=== PATIENT | male | born 1965 | race Caucasian/White ===

== ENCOUNTER 2019-03-10 20:21 | Inpatient (IN) | payer MEDICARE ==
[2019-03-10] MEDS ORDERED: Bisacodyl 5 MG TAB PO PRN (23:58)
[2019-03-10] MEDS ORDERED: Acetaminophen 325 MG TAB PO PRN (23:58)
[2019-03-11] MEDS ORDERED: hydrALAZINE 20 MG/ML VIAL SLOW IVP PRN (00:17)
--- NOTE | 2019-03-11 00:35 | HP ---
TIME OF SERVICE: 2330 hours. PRIMARY CARE PROVIDER: Unknown. CHIEF COMPLAINT: Pacemaker beeping. HISTORY OF PRESENT ILLNESS: Mr. Villanueva is a pleasant 53-year-old gentleman, who was seen at [facility] on March 10, 2019. He was initially seen at [facility] and was transferred to this facility. The patient is a very poor historian. He reports that he sees a collections clerk in [place], but is unable to recall the name. He reports that he does not have a primary care provider at this time. He also reports that he does not take any medications. He reports that he had a myocardial infarction in 1994. He reports that he had a pacemaker placed after that. He denies any irregular heart rhythms. He also reports being on some blood thinners until 2016, but is unable to recall the name. He presented to the [place] [facility] because his pacemaker started beeping. He denies any pacemaker shocks. The pacemaker was interrogated and that showed multiple rounds of sustained ventricular tachycardia and rounds of nonsustained ventricular tachycardia. The patient denies receiving any electric shock, as mentioned earlier. The patient also reports two falls, one 2 weeks ago and one 2 months ago. He reports head trauma during those falls, but did not seek medical attention. REVIEW OF SYSTEMS: All systems were reviewed and found to be negative except for the pertinent positives mentioned above. PAST MEDICAL HISTORY: Hypertension, dyslipidemia, diabetes mellitus, CVA x3, and myocardial infarction. PAST SURGICAL HISTORY: Pacemaker placement. SOCIAL HISTORY: The patient reports occasional marijuana use. He denies any alcohol use. He is an ex-smoker, with 114 pack-year history. FAMILY HISTORY: The patient denies any family history of premature coronary artery disease. ALLERGIES: NO KNOWN DRUG ALLERGIES. CURRENT MEDICATIONS: None. PHYSICAL EXAMINATION: GENERAL: On examination, Mr. Villanueva is awake and alert, not in acute distress. VITAL SIGNS: Blood pressure is 165/103, pulse 78, respiratory rate 18, and oxygen saturation 99% on room air. Earlier, his blood pressure was 191/147. EYES: No scleral icterus, no conjunctival pallor. ENT: Moist mucosal membranes. No oropharyngeal erythema or exudates. NECK: Supple, nontender, trachea is midline. RESPIRATORY: Accessory muscles of breathing are not active. Chest wall movements are symmetric bilaterally. Lungs are clear to auscultation without wheeze, rhonchi, or crepitations. CARDIOVASCULAR: S1 and S2 are heard, regular. Peripheral pulses palpable. ABDOMEN: Soft, nontender, bowel sounds heard. NEUROLOGIC: Cranial nerves 2 through 12 are intact. MUSCULOSKELETAL: Power is 5/5 in all 4 extremities. SKIN: He has bilateral lower extremity edema. LYMPHATIC: No cervical lymphadenopathy. PSYCHIATRIC: Normal mood, normal affect, the patient is oriented to person and place, not to time. LABORATORY AND DIAGNOSTIC FINDINGS: Mr. Villanueva's labs and investigations were reviewed. I reviewed his electrocardiogram, which shows atrial sensed, ventricular paced rhythm. I also reviewed his chest x-ray, which does not show any pulmonary infiltrates. He has an unremarkable CBC, INR 1.1, and unremarkable comprehensive metabolic profile. ASSESSMENT AND PLAN: Mr. Villanueva is a pleasant 53-year-old gentleman, who was seen at [facility] on March 10, 2019. His problem list includes: 1. AICD malfunction: It appears that the patient may have AICD and not pacemaker. It has been beeping. He did have runs of ventricular tachycardia. He will be admitted to the hospital for further management. He will be monitored on telemetry. Cardiology Service will be consulted for opinion and help with management. 2. Hypertensive urgency: Mr. Villanueva is also presenting with hypertensive urgency. We will start p.r.n. antihypertensives. We will monitor vital signs and titrate antihypertensives as needed. 3. Dyslipidemia: The patient is currently not on any medications for this. We will check fasting lipid profile and proceed based on the results. 4. Diabetes mellitus: We will check A1c level, we will initiate medications as needed. Many thanks for allowing me to participate in your patient's care. Please feel free to contact me with any questions or concerns. LEVEL OF RISK: High. LEVEL OF COMPLEXITY: High. Job ID: [id number]
[2019-03-11 03:01] VITALS: BMI 31.9
[2019-03-11 04:57] LABS: Hemoglobin A1c 6.2 % (4.0-6.0)
[2019-03-11 05:12] LABS: Anion Gap 13 mmol/L (10-20); BUN (Urea Nitrogen) 12 mg/dL (8.4-25.7); Calc. Creatinine Clearance 148 mL/min (70-130); Calcium 8.9 mg/dL (7.8-10.44); Carbon Dioxide 21 mmol/L (22-29); Cardiac Risk 6.3 (Less than 4.5); Chloride 106 mmol/L (98-107); Cholesterol 189 mg/dl (< 200 Desired); Estimated GFR-MDRD Greater than 90; Glucose 113 mg/dL (70-105); HDL Cholesterol 30 mg/dL (>60 Neg Risk); LDL Cholesterol, Calculated 123 mg/dL; Potassium 3.9 mmol/L (3.5-5.1); Sodium 136 mmol/L (136-145); Triglycerides 182 mg/dL (Less than 150)
[2019-03-11 05:34] LABS: #Basophils 0.1 thou/uL (0.0-0.2); #Eosinphils 0.3 thou/uL (0.0-0.7); #Lymphocytes 2.5 thou/uL (1.20-3.40); #Monocytes 0.5 thou/uL (0.11-0.59); #Neutrophils 4.8 thou/uL (1.40-6.50); %Basophils 0.8 % (0.0-1.0); %Eosinophils 3.3 % (0.0-10.0); %Lymphocytes 30.7 % (21.0-51.0); %Monocytes 5.9 % (0.0-10.0); %Neutrophils 59.4 % (42.0-75.0); Hemoglobin 15.4 g/dL (14.0-18.0); Mean Corpuscular Hemoglobin 33.4 pg (27.0-31.0); Mean Corpuscular Volume 95.3 fL (78.0-98.0); Mean Platelet Volume 8.6 fL (7.4-10.4); Platelet Count 137 thou/uL (130-400); RBC Distribution Width 11.6 % (11.5-14.5); Red Blood Cell (RBC) Count 4.62 mill/uL (4.70-6.10); White Blood Cell (WBC) Count 8.1 thou/uL (4.8-10.8)
--- NOTE | 2019-03-11 07:43 | CT ---
PRELIMINARY REPORT/[facility]/EMERGENCY AFTER HOURS PROCEDURE: PROCEDURE INFORMATION: Exam: CT Head without contrast Exam date and time: 03/11/2019 12:01 AM Clinical history: 53 years old, male; Injury or trauma; Initial encounter; Blunt trauma (contusions o r hematomas); Patient HX: Fall, head trauma, m53 w/ HX of mi presents to the ED from [facility]. PT reports he presented to [facility] initially because his pacemaker was beeping. PT states his pacemaker did not shock him. PT reports he has not been on blood thinners since 2017. PT states his p acemaker was placed after an mi in 1994. Per the pt's medical record, integration of his pacemaker sh owed multiple rounds of sustained vtach that he was paced out of and rounds of unsustained vtach that he was paced out of TECHNIQUE: Imaging protocol: Computed tomography of the head without contrast. COMPARISON: No relevant prior studies available. FINDINGS: Brain: Volume loss and chronic small vessel ischemic change. Left occipital encephalomalacia/gliosis. Old lacunar infarction(s). No brain edema. No intracranial hemorrhage. Ventricles: Normal. No ventriculomegaly. Bones/joints: Unremarkable. No acute fracture. Sinuses: Incidental sinus mucosal thickening present. Dependent mucus in the sphenoid sinuses. Mastoid air cells: Visualized mastoid air cells are well aerated. Soft tissues: Unremarkable. IMPRESSION: No acute brain findings. Thank you for allowing us to participate in the care of your patient. Dictated and Authenticated by: Jas Guerra MD 03/11/2019 12:20 AM Central Time ([place] & [place]) FINAL REPORT CT HEAD NONCONTRAST: DATE: 03/11/2019. TIME: Performed on an emergency basis at 0002 hours. HISTORY: Head injury. FINDINGS: No comparison. Agree with the preliminary report by Dr. Guerra from [facility]. Old left oc cipital lobe infarct and other chronic-type findings. No acute intracranial abnormalities are demons trated. POS: [facility]
[2019-03-11] MEDS: Carvedilol 3.125 MG TAB PO SCH ×2 (08:42→18:23)
[2019-03-11] MEDS ORDERED: PROPOFOL 200 MG/20 ML VIAL ONE (15:19)
[2019-03-11] MEDS ORDERED: Fentanyl 100 MCG/2 ML VIAL ONE (16:00)
[2019-03-11] MEDS ORDERED: Midazolam HCl 2 mg/2 ml Vial ONE (16:00)
[2019-03-11] MEDS ORDERED: Lidocaine 1% (PF) 30 ML VIAL ONE (16:03)
--- NOTE | 2019-03-11 16:11 | PDOC.HOSPP ---
- Subjective Encounter Date: 03/11/19 Encounter Time: 10:00 Subjective: no sob or chest pain or palp - Objective Vital Signs & Weight: Vital Signs (12 hours) Temp Pulse Resp BP Pulse Ox 03/11/19 11:26 98.1 F 83 18 152/107 H 93 L 03/11/19 07:45 97.8 F 64 20 140/76 92 L 03/11/19 04:18 97.5 F L 73 16 167/94 H 94 L Weight Weight 229 lb 1.6 oz Result Diagrams: 03/11/19 04:16 03/11/19 04:16 Hospitalist ROS - Medication Medications: Active Medications Generic Name Dose Route Start Last Admin Trade Name Freq PRN Reason Stop Dose Admin Carvedilol 3.125 mg 03/11/19 08:00 03/11/19 08:42 Coreg PO 3.125 mg BID-WM SRINIVAS Administration - Exam General Appearance: NAD, awake alert Eye: anicteric sclera ENT: no oropharyngeal lesions, dry oral mucosa Neck: supple, no JVD Heart: RRR, no murmur Respiratory: no wheezes, no rales Gastrointestinal: soft, non-tender, non-distended, normal bowel sounds Extremities: no clubbing, no edema Neurological: cranial nerve grossly intact, no focal deficits Psychiatric: normal affect, A&O x 3 Hosp A/P (1) Pacemaker malfunction Code(s): T82.111A - BREAKDOWN OF CARDIAC PULSE GENERATOR (BATTERY), INIT Status: Acute (2) Obesity (BMI 30.0-34.9) Code(s): E66.9 - OBESITY, UNSPECIFIED Status: Chronic (3) HTN (hypertension) Code(s): I10 - ESSENTIAL (PRIMARY) HYPERTENSION Status: Chronic Qualifiers: Hypertension type: essential hypertension Qualified Code(s): I10 - Essential (primary) hypertension (4) H/O: CVA (cerebrovascular accident) Code(s): Z86.73 - PRSNL HX OF TIA (TIA), AND CEREB INFRC W/O RESID DEFICITS Status: Chronic (5) DM type 2 (diabetes mellitus, type 2) Status: Chronic Qualifiers: 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
[2019-03-11] MEDS ORDERED: Propofol 1,000 MG/100 ML VIAL IV ONE (16:23)
--- NOTE | 2019-03-11 17:17 | CON ---
DATE OF CONSULTATION: HISTORY OF PRESENT ILLNESS: The patient is a 53-year-old gentleman with a history of myocardial infarction,who presented after his AICD started beeping. The patient has a history of ischemic cardiomyopathy. He states many years ago he suffered myocardial infarction. The patient unfortunately has not been compliant with any followup. He has not been taking any medications. The patient does not see any physician on a regular basis. He states that he was in his usual state of health when he noted that his defibrillator had been beeping. The patient denies having any palpitations.He denies having any chest pain. PAST MEDICAL HISTORY: 1. Myocardial infarction. 2. Hypertension. 3. Diabetes mellitus. 4. Dyslipidemia. 5. COPD. PAST SURGICAL HISTORY: Testicular surgery. MEDICATIONS: None. SOCIAL HISTORY: Former smoker. ALLERGIES: NO KNOWN DRUG ALLERGIES. REVIEW OF SYSTEMS: Ten-point system otherwise unremarkable. PHYSICAL EXAMINATION: GENERAL AND VITAL SIGNS: This is an obese gentleman who is anxious with a blood pressure of 140/76. NECK: No jugular venous distention. LUNGS: Clear to auscultation. HEART: Regular rate and rhythm. Normal S1, S2. ABDOMEN: Nondistended. EXTREMITIES: Show trace edema. VASCULAR: Radial pulses are 2+. LABORATORY DATA: Sodium 136, potassium 3.9, chloride 106, bicarbonate 21, BUN 12, creatinine 0.84, and glucose is 113. White blood cell count 8.1, hemoglobin 15.4, hematocrit 44.1, and platelets are 137. EKG revealed dual-chamber electronic pacemaker. IMPRESSION: 1. Implantable cardioverter-defibrillator at end of life. 2. History of ischemic cardiomyopathy. 3. History of myocardial infarction. 4. Diabetes mellitus. 5. Hypertension. 6. Dyslipidemia. 7. Chronic obstructive pulmonary disease. 8. Noncompliance. This gentleman has not had any recent medical care. From a Cardiac standpoint, his battery needs to be replaced. The patient will undergo an echocardiogram to re-evaluate his left ventricular function. The patient has been started on Coreg. We will add lisinopril. We will follow this patient with you throughout his hospitalization. Job ID: [id number] [facility]
[2019-03-11] MEDS ORDERED: Ondansetron HCl/PF 4 MG/2 ML Vial IVP PRN (17:31)
[2019-03-11] MEDS ORDERED: HYDROcodone/Acetaminophen 5/325 mg Tablet PO PRN ×2 (18:15)
[2019-03-11] MEDS ORDERED: Cephalexin 250 MG CAP PO SCH (18:15)
[2019-03-11] MEDS: Lisinopril 5 MG TAB PO SCH (20:10)
[2019-03-11] MEDS: Atorvastatin Calcium 40 MG TAB PO SCH (20:10)
[2019-03-11 21:49] LABS: Anion Gap 11 mmol/L (10-20); BUN (Urea Nitrogen) 12 mg/dL (8.4-25.7); Calc. Creatinine Clearance 136 mL/min (70-130); Calcium 8.6 mg/dL (7.8-10.44); Carbon Dioxide 21 mmol/L (22-29); Chloride 104 mmol/L (98-107); Estimated GFR-MDRD 87; Glucose 181 mg/dL (70-105); Potassium 3.7 mmol/L (3.5-5.1); Sodium 132 mmol/L (136-145)
[2019-03-12] MEDS: Cephalexin 250 MG CAP PO SCH ×4 (01:35→17:52)
[2019-03-12 06:04] LABS: #Eosinphils 0.2 thou/uL (0.0-0.7); #Lymphocytes 1.9 thou/uL (1.20-3.40); #Monocytes 0.5 thou/uL (0.11-0.59); #Neutrophils 7.4 thou/uL (1.40-6.50); %Basophils 0.3 % (0.0-1.0); %Eosinophils 2.4 % (0.0-10.0); %Lymphocytes 18.9 % (21.0-51.0); %Monocytes 4.9 % (0.0-10.0); %Neutrophils 73.5 % (42.0-75.0); Hemoglobin 15.2 g/dL (14.0-18.0); Mean Corpuscular HGB CONC 35.7 g/dL (32.0-36.0); Mean Corpuscular Hemoglobin 34.8 pg (27.0-31.0); Mean Corpuscular Volume 97.2 fL (78.0-98.0); Mean Platelet Volume 8.7 fL (7.4-10.4); Platelet Count 140 thou/uL (130-400); RBC Distribution Width 11.6 % (11.5-14.5); Red Blood Cell (RBC) Count 4.39 mill/uL (4.70-6.10); White Blood Cell (WBC) Count 10.1 thou/uL (4.8-10.8)
[2019-03-12 06:22] LABS: Anion Gap 12 mmol/L (10-20); BUN (Urea Nitrogen) 12 mg/dL (8.4-25.7); Calc. Creatinine Clearance 159 mL/min (70-130); Calcium 8.6 mg/dL (7.8-10.44); Carbon Dioxide 20 mmol/L (22-29); Chloride 106 mmol/L (98-107); Estimated GFR-MDRD Greater than 90; Glucose 105 mg/dL (70-105); Potassium 3.7 mmol/L (3.5-5.1); Sodium 134 mmol/L (136-145)
[2019-03-12] MEDS ORDERED: Carvedilol 3.125 MG TAB PO SCH (08:45)
[2019-03-12] MEDS: Lisinopril 5 MG TAB PO SCH ×2 (10:12→21:01)
[2019-03-12] MEDS: Aspirin Chewable 81 MG TAB PO SCH (10:12)
[2019-03-12] MEDS: Carvedilol 3.125 MG TAB PO SCH ×2 (10:14→17:51)
[2019-03-12] MEDS ORDERED: FLU VACC QS2019-20(6MOS UP)/PF 60 MCG/0.5 ML SYRINGE IM ONE (10:15)
--- NOTE | 2019-03-12 10:30 | PRG ---
DATE OF SERVICE: 03/12/2019 SUBJECTIVE: Mr. Villanueva seems to be doing well one day after his ICD generator change. LABORATORY DATA: Telemetry strips reveal sinus rhythm, occasional short nonsustained ventricular tachycardia episodes. White count is 10.1, hemoglobin 15.2. Electrolytes are in normal range. OBJECTIVE: VITAL SIGNS: Blood pressure is 150/107, heart rate 83, respirations 18, temperature 98.1 degrees Fahrenheit. GENERAL: Alert and oriented man, in no apparent distress. NECK: Supple. Jugular veins not distended. CHEST: Coarse without crackles. CARDIAC: Heart sounds are regular to rate and rhythm. No murmur or gallop. ABDOMEN: Benign. Bowel sounds positive. EXTREMITIES: Lower extremity without edema, clubbing, or cyanosis. Also the left precordial ICD generator change site seems to be with adequate approximated edges. No reaction. ASSESSMENT AND PLAN: Mr. Villanueva is a 53-year-old man with history of ischemic cardiomyopathy, ventricular tachycardia, Bi-V ICD placed back in April 2011 which reached generator end of life and required replacement yesterday. 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 Instead, we have opted for switching the LV and RV ports hence adequate sensing from the LV lead was noted. In the future, programing of this should be noted as he seems to be doing well with Bi-V pacing. Plan is to continue current regimen including antibiotics. He is to follow up in 2 weeks in our office. I will sign off. Please call us if I can be of any further help. Thank you again for allowing me to participate in the care of this patient. Job ID: [id number]
--- NOTE | 2019-03-12 12:53 | PDOC.HOSPP ---
- Subjective Encounter Date: 03/12/19 Encounter Time: 10:00 Subjective: no sob or palp is sitting on bed, feels good says he is amb to restroom and back - Objective Vital Signs & Weight: Vital Signs (12 hours) Temp Pulse Resp BP BP Pulse Ox 03/12/19 12:00 97.9 F 71 18 123/73 93 L 03/12/19 10:12 74 140/67 03/12/19 07:51 98 F 74 16 140/67 93 L 03/12/19 07:30 93 L 03/12/19 03:22 97.9 F 72 16 141/79 H 96 03/12/19 01:52 94 L Weight Weight 229 lb 1.6 oz I&O: 03/11/19 03/12/19 03/13/19 06:59 06:59 06:59 Intake Total 300 Output Total 0 Balance 300 Result Diagrams: 03/12/19 04:49 03/12/19 04:49 Additional Labs: Accuchecks 03/11/19 20:42 POC Glucose 209 H Hospitalist ROS - Medication Medications: Active Medications Generic Name Dose Route Start Last Admin Trade Name Freq PRN Reason Stop Dose Admin Aspirin 81 mg 03/12/19 09:00 03/12/19 10:12 Aspirin Chewable PO 81 mg DAILY SRINIVAS Administration Atorvastatin Calcium 40 mg 03/11/19 21:00 03/11/19 20:10 Lipitor PO 40 mg HS SRINIVAS Administration Cephalexin 500 mg 03/11/19 23:59 03/12/19 12:08 Keflex PO 03/18/19 12:01 500 mg Q6HR SRINIVAS Administration Hydralazine HCl 10 mg 03/11/19 00:17 03/11/19 22:18 Apresoline SLOW IVP 10 mg Q6H PRN Administration SBP Greater Than 170 Lisinopril 5 mg 03/11/19 21:00 03/12/19 10:12 Zestril PO 5 mg BID SRINIVAS Administration - Exam General Appearance: NAD, awake alert Eye: PERRL, anicteric sclera ENT: no oropharyngeal lesions, moist mucosa Neck: supple, no JVD Heart: RRR, no murmur Respiratory: no wheezes, no rales Gastrointestinal: soft, non-tender, non-distended, normal bowel sounds Extremities: no cyanosis, no edema Neurological: cranial nerve grossly intact, no focal deficits Psychiatric: normal affect, A&O x 3 Hosp A/P (1) Pacemaker malfunction Code(s): T82.111A - BREAKDOWN OF CARDIAC PULSE GENERATOR (BATTERY), INIT Status: Resolved (2) Obesity (BMI 30.0-34.9) Code(s): E66.9 - OBESITY, UNSPECIFIED Status: Chronic (3) HTN (hypertension) Code(s): I10 - ESSENTIAL (PRIMARY) HYPERTENSION Status: Chronic Qualifiers: Hypertension type: essential hypertension Qualified Code(s): I10 - Essential (primary) hypertension (4) H/O: CVA (cerebrovascular accident) Code(s): Z86.73 - PRSNL HX OF TIA (TIA), AND CEREB INFRC W/O RESID DEFICITS Status: Chronic (5) DM type 2 (diabetes mellitus, type 2) Status: Chronic 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
--- NOTE | 2019-03-12 15:40 | CON ---
DATE OF CONSULTATION: 03/12/2019 I am seeing Mr. 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 His problems are; 1. ICD battery depletion, the patient is ALEXEY since the summer. 2. History of chronic systolic congestive heart failure with ischemic cardiomyopathy to a history of remote myocardial infarction. 3. Nonsustained ventricular tachyarrhythmias with episodic ATP therapy noted in the past, but no shocks required. 4. Noncompliance with followups. 5. History of diabetes. 6. Hypertension. 7. History of COPD. ALLERGIES: NONE NOTED. MEDICATIONS: At home included none. SUBJECTIVE: Mr. Villanueva was admitted with complaints of ICD beeping. At this time, he denies palpitations, dizziness, loss of consciousness. In the ER and EMS, he was noted to have runs of nonsustained ventricular tachycardia. He has not been symptomatic in this regard. He does not pass out. No stroke-like symptoms. No neurological deficits. Denies PND, orthopnea, or lower extremity edema, NYHA class II functional status. REVIEW OF SYSTEMS: The rest of 12-point review of system otherwise unremarkable. PAST MEDICAL HISTORY: As above. SOCIAL HISTORY: The patient denies smoking, EtOH, or drug abuse. He used to smoke in the past. PAST SURGICAL HISTORY: Significant for remote testicular surgery. FAMILY HISTORY: Not contributory. OBJECTIVE DATA: VITAL SIGNS: Blood pressure is 152/107, previously 140/76; heart rate 64, respiratory rate is 20, and temperature 97.8 degrees Fahrenheit. GENERAL: Alert and oriented man, in no apparent distress. NECK: Supple. Jugular veins not distended. CHEST: Coarse. No crackles. CARDIAC: Heart sounds are regular to rate and rhythm. No murmur or gallop. ABDOMEN: Benign. Bowel sounds positive. EXTREMITIES: Lower extremities without edema, clubbing, or cyanosis. Pulses are adequate. NEUROLOGIC: The patient is nonfocal. MUSCULOSKELETAL: No joint swelling or deformity. SKIN: Without rash. DATABASE: EKG is reviewed revealing sinus rhythm, ventricular pacing. Interrogation of the device revealed a Medtronic Protecta ANESTHESIOLOGIST-D BiV pacemaker defibrillator, which has a very low battery of just 0.53 V at end of service. The impedances are adequate 437, 494, and 696 ohms. The RV lead is also sensing adequately at 90.9 mV. The RA sensing is 3.6 mV. This is a 6949 lead on advisory. The ventricular tachycardia episodes are seen over the period of last year with successful ATP termination. No definite AFib episodes are noted, all 17 episodes . ASSESSMENT AND PLAN: Mr. Villanueva is a pleasant 53-year-old man with prior history of CHF, ischemic cardiomyopathy, myocardial infarction, and subsequent prophylactic ICD implantation back in 2011. He has failed to follow up, in fact his last interrogation was back in 2011. Since he had a number of VT events, now his device is end of service likely it will not provide adequate protection for him. He clearly needs generator change. On the other hand, he also has RV lead, which is on advisory, a Sprint Gurley 6949 lead. We discussed these issues with him. He is interested in having the battery replaced and possibly lead repair, although we discussed the option of continued use of this lead if venous occlusion is seen. Hence, currently no malfunction is noted with it. Risks and benefit of procedure were discussed. He understands the chance of infection, bleeding, pneumothorax, tamponade, device malfunction. He is willing to proceed. Thank you again for allowing me to participate in the care of this patient. Job ID: [id number] [facility]
[2019-03-12] MEDS: Atorvastatin Calcium 40 MG TAB PO SCH (21:01)
[2019-03-13] MEDS: Cephalexin 250 MG CAP PO SCH ×4 (00:15→18:04)
[2019-03-13 05:45] LABS: #Basophils 0.1 thou/uL (0.0-0.2); #Eosinphils 0.2 thou/uL (0.0-0.7); #Lymphocytes 2.2 thou/uL (1.20-3.40); #Monocytes 0.4 thou/uL (0.11-0.59); #Neutrophils 3.3 thou/uL (1.40-6.50); %Basophils 1.1 % (0.0-1.0); %Eosinophils 3.6 % (0.0-10.0); %Lymphocytes 35.5 % (21.0-51.0); %Monocytes 6.4 % (0.0-10.0); %Neutrophils 53.5 % (42.0-75.0); Hemoglobin 14.6 g/dL (14.0-18.0); Mean Corpuscular HGB CONC 35.3 g/dL (32.0-36.0); Mean Corpuscular Hemoglobin 34.2 pg (27.0-31.0); Mean Corpuscular Volume 96.9 fL (78.0-98.0); Mean Platelet Volume 8.7 fL (7.4-10.4); Platelet Count 125 thou/uL (130-400); RBC Distribution Width 11.5 % (11.5-14.5); Red Blood Cell (RBC) Count 4.26 mill/uL (4.70-6.10); White Blood Cell (WBC) Count 6.1 thou/uL (4.8-10.8)
[2019-03-13 06:02] LABS: Anion Gap 11 mmol/L (10-20); BUN (Urea Nitrogen) 13 mg/dL (8.4-25.7); Calc. Creatinine Clearance 161 mL/min (70-130); Calcium 8.6 mg/dL (7.8-10.44); Carbon Dioxide 21 mmol/L (22-29); Chloride 108 mmol/L (98-107); Estimated GFR-MDRD Greater than 90; Glucose 100 mg/dL (70-105); Potassium 3.4 mmol/L (3.5-5.1); Sodium 137 mmol/L (136-145)
[2019-03-13] MEDS: Lisinopril 5 MG TAB PO SCH ×2 (08:58→19:53)
[2019-03-13] MEDS: Aspirin Chewable 81 MG TAB PO SCH (08:58)
[2019-03-13] MEDS: Carvedilol 3.125 MG TAB PO SCH ×2 (08:58→18:05)
--- NOTE | 2019-03-13 15:23 | PDOC.OP ---
Operative Note - Operative Note Operative Note: OK to DC by EP s/p generator change. Antibiotic Rx post implant in front of chart. 2 week wound check with TCA is requested.
[2019-03-13] MEDS: Atorvastatin Calcium 40 MG TAB PO SCH (19:53)
[2019-03-13 19:55] VITALS: BP 164/86; TEMP 98.1
--- NOTE | 2019-03-13 20:22 | DIS ---
DATE OF ADMISSION: 03/10/2019 DATE OF DISCHARGE: 03/13/2019 DISCHARGE DISPOSITION: To home. PRIMARY DISCHARGE DIAGNOSES: 1. 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 2. Hypertension. 3. Obesity. 4. Cardiomyopathy with ejection fraction of 20%. 5. History of CVA. 6. Diabetes mellitus, type 2. PROCEDURES DONE DURING HOSPITALIZATION: CT of brain showed no acute findings. Old left occipital lobe infarct and chronic other findings were seen. No acute abnormalities were seen on the CT of brain. Echo with 2D Doppler showed EF of 15%. There was diastolic dysfunction. The patient has had his AICD/biventricular pacer battery changed by Dr. Ap Carmona on 03/12/2019. H and H 14 and 41, platelet count 125, and white count of 6. BUN 13, creatinine 0.7. Total cholesterol 189, triglycerides 182, LDL 123, and HDL 30. INPATIENT CONSULT: 1. Dr. Mohan for Cardiology. 2. Dr. Mike Carmona for Electrophysiology. DISCHARGE MEDICATIONS: 1. Aspirin 81 mg p.o. daily. 2. Atorvastatin 40 mg p.o. at bedtime. 3. Coreg 6.25 mg p.o. twice daily. 4. Keflex 500 mg p.o. 4 times daily for another 6 days. 5. Lisinopril 5 mg p.o. twice daily. ALLERGIES: NO KNOWN DRUG ALLERGIES. DISCHARGE PLAN: The patient to follow up with Dr. Mohan in 2 weeks, Dr. Mike Carmona on the of this month at 2:20 p.m., [facility] on the at 10:30 a.m. BRIEF COURSE DURING HOSPITALIZATION: The patient initially came to ER with complaints of his pacemaker making noise. The patient has had prior history of AICD with biventricular pacer with battery depletion. He was evaluated by Dr. Mike Carmona and has battery replaced. Echo with 2D Doppler done during his stay revealed ejection fraction of 15% to 20%. His medications were optimized. He has chronic systolic and diastolic heart failure, AHA class C, stage III [place] [employer] classification. His medications were optimized during his stay. Prior to discharge, he is ambulating and eating solid food. His AICD was evaluated post-placement and is working well per Dr. Carmona. He needs to see Dr. Carmona on the at 2:20 p.m. and followup appointment with his primary care physician at [facility] has been set up on the at 10:30 a.m. Please note, I have seen and examined the patient on the day of discharge. He has been cleared by Dr. Mohan and Dr. Mike Carmona for discharge. The patient would benefit from outpatient sleep studies via primary care physician to rule out obstructive sleep apnea. Job ID: [id number] [facility]
--- NOTE | 2019-03-14 15:22 | EKG ---
Test Reason : Blood Pressure : / mmHG Vent. Rate : 076 BPM Atrial Rate : 076 BPM P-R Int : 136 ms QRS Dur : 156 ms QT Int : 442 ms P-R-T Axes : 031 092 -21 degrees QTc Int : 497 ms Electronic ventricular pacemaker Confirmed by SCARLETT MONTEIRO MD ([id number]), newspaper editor managing RUIZ KRAMER ([id number]) on 03/14/2019 3:22:05 PM Referred By: Confirmed By:SCARLETT MONTEIRO MD
== END 2019-03-13 19:56 | disposition home or self-care (01) | DRG 245 ==
LOC: ERS 20:21 → 2SE 21:32
PROVIDERS: ADMIT Internal Medicine; ATTEND Internal Medicine
PROC: 0JPT0PZ Removal of Cardiac Rhythm Related Device from Trunk Subcutaneous Tissue and Fascia, Open Approach (ICD-10-PCS; principal; 2019-03-11)
PROC: 0JH608Z Insertion of Defibrillator Generator into Chest Subcutaneous Tissue and Fascia, Open Approach (ICD-10-PCS; 2019-03-11)
DX: T82.111A Breakdown (mechanical) of cardiac pulse generator (battery), initial encounter (principal); I47.2 Ventricular tachycardia; I50.42 Chronic combined systolic (congestive) and diastolic (congestive) heart failure; E78.5 Hyperlipidemia, unspecified; E11.9 Type 2 diabetes mellitus without complications; I16.0 Hypertensive urgency; E66.9 Obesity, unspecified; I11.0 Hypertensive heart disease with heart failure; Z68.32 Body mass index [BMI] 32.0-32.9, adult; I25.5 Ischemic cardiomyopathy; I25.2 Old myocardial infarction; Z86.73 Personal history of transient ischemic attack (TIA), and cerebral infarction without residual deficits; Z95.0 Presence of cardiac pacemaker; Z87.891 Personal history of nicotine dependence; Z91.14 Patient's other noncompliance with medication regimen
CPT/HCPCS: 36415; 36416; 70450; 80048; 80061; 83036; 83735; 85025; 90471; 90732; 93005; 93306; C1882; G0009; J0360; J0690; J2001; J2250; J2704; J3010; J3490

== ENCOUNTER 2019-04-25 18:49 | Inpatient (IN) | payer MEDICARE ==
--- NOTE | 2019-04-25 19:46 | RAD ---
CHEST ONE VIEW: 04/25/19 COMPARISON: 03/10/19. HISTORY: Pain. FINDINGS: Left sided transvenous defibrillator with lead position over the right atrium, right ventricle and co ronary sinus. There is atherosclerosis of the aorta. Enlarged cardiac silhouette. Pulmonary vessels a nd hilum are normal. Costophrenic angles are clear. No masses or consolidation. No pneumothorax or ac [place] osseous abnormalities. IMPRESSION: No acute cardiopulmonary process. POS: PPP
[2019-04-25 19:49] LABS: #Basophils 0.1 thou/uL (0.0-0.2); #Eosinphils 0.3 thou/uL (0.0-0.7); #Lymphocytes 1.9 thou/uL (1.20-3.40); #Monocytes 0.5 thou/uL (0.11-0.59); #Neutrophils 7.2 thou/uL (1.40-6.50); %Basophils 0.8 % (0.0-1.0); %Eosinophils 3.2 % (0.0-10.0); %Lymphocytes 18.8 % (21.0-51.0); %Monocytes 5.3 % (0.0-10.0); %Neutrophils 71.9 % (42.0-75.0); Hemoglobin 15.8 g/dL (14.0-18.0); Mean Corpuscular HGB CONC 35.5 g/dL (32.0-36.0); Mean Corpuscular Hemoglobin 35.7 pg (27.0-31.0); Mean Platelet Volume 8.8 fL (7.4-10.4); Platelet Count 161 thou/uL (130-400); RBC Distribution Width 11.9 % (11.5-14.5); Red Blood Cell (RBC) Count 4.44 mill/uL (4.70-6.10)
[2019-04-25 20:14] LABS: ALT (SGPT) 19 U/L (8-55); AST (SGOT) 48 U/L (5-34); Albumin 4.5 g/dL (3.5-5.0); Alkaline Phosphatase 73 U/L (40-110); Anion Gap 12 mmol/L (10-20); BUN (Urea Nitrogen) 11 mg/dL (8.4-25.7); Bilirubin, Total 0.8 mg/dL (0.2-1.2); Calc. Creatinine Clearance 0 mL/min (70-130); Calcium 9.1 mg/dL (7.8-10.44); Carbon Dioxide 27 mmol/L (22-29); Chloride 109 mmol/L (98-107); Estimated GFR-MDRD 70; Globulin 2.8 g/dL (2.4-3.5); Glucose 192 mg/dL (70-105); Potassium 4.4 mmol/L (3.5-5.1); Protein, Total 7.3 g/dL (6.0-8.3); Sodium 144 mmol/L (136-145)
[2019-04-25 20:50] LABS: CKMB 22.2 ng/mL (0-6.6)
[2019-04-25] MEDS ORDERED: Enoxaparin Sodium 80 MG/0.8 ML SYRINGE ONE (20:53)
[2019-04-25] MEDS ORDERED: Enoxaparin Sodium 30 MG/0.3 ML SYRINGE ONE (20:53)
[2019-04-25] MEDS ORDERED: Clopidogrel Bisulfate 300 MG TAB PO SCH (21:00)
[2019-04-25] MEDS ORDERED: Acetaminophen 325 MG TAB PO PRN (22:52)
[2019-04-25] MEDS ORDERED: Ondansetron ODT 4 MG TAB SL PRN (23:25)
[2019-04-25] MEDS ORDERED: Sodium Chloride 0.9% 1,000 ML IV SCH (23:25)
[2019-04-25] MEDS ORDERED: Ondansetron PF 4 MG/2 ML Vial IVP PRN (23:25)
[2019-04-26 00:14] VITALS: BMI 32.2
[2019-04-26 00:17] LABS: Troponin I 5.567 ng/mL (< 0.028)
[2019-04-26] MEDS ORDERED: Carvedilol 6.25 MG TAB PO SCH (00:30)
--- NOTE | 2019-04-26 01:06 | HP ---
PRIMARY CARE PHYSICIAN: Jerry in [place]. CHIEF COMPLAINT: Chest pain. HISTORY OF PRESENT ILLNESS: Mr. Villanueva is a 53-year-old man. He reported to the emergency room today with evaluation of chest pain, which started at about 0530 hours while he was sleeping. Reports that this is localized to sternal chest and reports that it feels like a pressure. Reports that he had the battery replaced on his AICD two weeks ago and he denies any complications postop. On reviewing the notes, Dr. Carmona had given him a prescription for antibiotics to take postop and he reports that his niece misplaced the prescriptions and he never got it filled. Reports that he has been off all of his medications and he does not know where they are. Last OH, he reports was in 2007. During his evaluation in the emergency room, the patient had an elevated troponin at 3.862 and an elevated CK-MB at 22.2, glucose was 192, AST 48, white blood cell count 10, hemoglobin 15.8, hematocrit 44.7, and platelet count 161. Due to the elevated troponin, Dr. Paul, handbag designer on-call, was consulted from the emergency room and he recommended admission, medical management, and to give Lovenox and Plavix and that he would see. The patient was discharged here on 03/13/2019, after the pacemaker battery was changed. He was supposed to be taking several medications. Echocardiogram was done on 03/12, which showed an EF of 20%, some diastolic dysfunction, mild mitral regurgitation, and mild tricuspid regurgitation. The patient to be admitted to the telemetry unit for further management. REVIEW OF SYSTEMS: The patient reports some chest pain, substernal. Reports some mild shortness of breath. Denies any fever or chills. All systems are reviewed and are negative unless mentioned in the HPI. PAST MEDICAL HISTORY: CHF, hypertension, high cholesterol, diabetes, has had multiple strokes, and has had an OH in the past. PAST SURGICAL HISTORY: Pacemaker. SOCIAL HISTORY: The patient is an occasional marijuana user. Denies any alcohol use. He is an ex-smoker. FAMILY HISTORY: He denies any family history of any premature coronary artery disease. ALLERGIES: NONE. CURRENT MEDICATIONS: That he was discharged on, on 03/13, 1. Aspirin 81 mg p.o. daily. 2. Atorvastatin 40 mg p.o. at bedtime. 3. Coreg 6.25 mg p.o. twice daily. 4. Keflex 500 mg p.o. four times daily for another six days. 5. Lisinopril 5 mg p.o. b.i.d. PHYSICAL EXAMINATION: VITAL SIGNS: Blood pressure 169/92, pulse is 76, respirations are 20, temperature is 98.1, and pO2 sats are 98% on room air. CONSTITUTIONAL: The patient appears nontoxic. He is alert and oriented to person, place, and time. He is unkempt. Hair is matted. HEENT: Head is atraumatic and normocephalic. Eyes, pupils are equally round and reactive to light. Extraocular muscles are intact. ENT, mouth exam is normal. Mucous membranes are moist. NECK: Normal range of motion. Trachea is midline. RESPIRATORY/CHEST: Breath sounds are clear. Chest expansion is equal. CARDIOVASCULAR: Regular heart rate and rhythm. Heart sounds are normal. AICD placement noted to chest, left side. ABDOMEN: Nontender. Bowel sounds are heard. BACK: Normal range of motion. No tenderness. EXTREMITIES: Upper extremity; normal range of motion. Motor strength is normal. Sensation intact. Radial pulses are normal. Lower extremity; normal range of motion. Motor strength is normal. Sensation is intact. Pedal pulses are normal. No edema is noted. NEUROLOGIC: Oriented to person, place, and time. SKIN: Warm, dry, normal in color. PSYCH: Has a normal affect. DIAGNOSTIC DATA: EKG in the emergency room shows beats per minute 71, electronic ventricular pacemaker is present. Chest x-ray; no acute process. ASSESSMENT AND PLAN: 1. Non-ST segment elevation myocardial infarction. The patient was given a loading dose of Lovenox and Plavix in the emergency room. We will continue this. We will ask Dr. Paul to consult in the a.m. We will restart his Coreg, lisinopril, and atorvastatin. Troponins will be trended. Automatic implantable cardioverter-defibrillator will be interrogated. 2. History of hypertension. We will restart home medications. 3. History of hyperlipidemia. We will restart Lipitor. 4. History of congestive heart failure. Restart the Coreg. 5. Gastrointestinal and deep venous thrombosis prophylaxis started. 6. Case discussed with Dr. Miguel, who agrees with plan. Job ID: [id number]
[2019-04-26 03:18] LABS: #Basophils 0.1 thou/uL (0.0-0.2); #Eosinphils 0.2 thou/uL (0.0-0.7); #Monocytes 0.4 thou/uL (0.11-0.59); #Neutrophils 6.7 thou/uL (1.40-6.50); %Basophils 0.7 % (0.0-1.0); %Eosinophils 2.6 % (0.0-10.0); %Lymphocytes 21.5 % (21.0-51.0); %Monocytes 4.5 % (0.0-10.0); %Neutrophils 70.8 % (42.0-75.0); Hemoglobin 14.9 g/dL (14.0-18.0); Mean Corpuscular HGB CONC 34.3 g/dL (32.0-36.0); Mean Corpuscular Hemoglobin 33.9 pg (27.0-31.0); Mean Corpuscular Volume 98.9 fL (78.0-98.0); Mean Platelet Volume 8.7 fL (7.4-10.4); Platelet Count 150 thou/uL (130-400); RBC Distribution Width 12.2 % (11.5-14.5); Red Blood Cell (RBC) Count 4.39 mill/uL (4.70-6.10); White Blood Cell (WBC) Count 9.4 thou/uL (4.8-10.8)
[2019-04-26 03:44] LABS: ALT (SGPT) 25 U/L (8-55); AST (SGOT) 108 U/L (5-34); Albumin 4.1 g/dL (3.5-5.0); Alkaline Phosphatase 66 U/L (40-110); Anion Gap 12 mmol/L (10-20); BUN (Urea Nitrogen) 11 mg/dL (8.4-25.7); Bilirubin, Total 0.9 mg/dL (0.2-1.2); Calc. Creatinine Clearance 157 mL/min (70-130); Calcium 8.6 mg/dL (7.8-10.44); Carbon Dioxide 23 mmol/L (22-29); Chloride 111 mmol/L (98-107); Estimated GFR-MDRD Greater than 90; Glucose 115 mg/dL (70-105); Potassium 3.7 mmol/L (3.5-5.1); Protein, Total 7.1 g/dL (6.0-8.3); Sodium 142 mmol/L (136-145)
[2019-04-26 03:49] LABS: Troponin I 13.069 ng/mL (< 0.028)
[2019-04-26] MEDS ORDERED: Potassium Chloride 20 MEQ TAB PO SCH (05:45)
[2019-04-26 06:52] LABS: Troponin I 23.132 ng/mL (< 0.028)
[2019-04-26] MEDS ORDERED: Aspirin Chewable 81 MG TAB PO SCH (09:00)
[2019-04-26] MEDS ORDERED: Lisinopril 5 MG TAB PO SCH (09:00)
[2019-04-26] MEDS: Carvedilol 6.25 MG TAB PO SCH ×2 (09:52→16:44)
[2019-04-26] MEDS: Famotidine 20 MG TAB PO SCH ×2 (09:53→20:36)
[2019-04-26] MEDS: Enoxaparin Sodium 100 MG/ML SYRINGE SC SCH ×2 (09:53→20:35)
[2019-04-26] MEDS: Clopidogrel Bisulfate 75 MG TAB PO SCH (09:53)
[2019-04-26] MEDS: Lisinopril 10 MG TAB PO SCH ×2 (09:53→20:36)
[2019-04-26] MEDS ORDERED: Milk Of Magnesia 30 ML UDCUP PO SCH (10:00)
--- NOTE | 2019-04-26 10:37 | PRG ---
DATE OF SERVICE: 04/26/2019 SUBJECTIVE: The patient is seen and examined at the bedside. He does not have much complaints to offer, except for being constipated. His appetite is fair. He does not have much pain. OBJECTIVE: VITAL SIGNS: Blood pressure is 142/75, pulse is 70, temperature is 97.9, respirations are 20, and O2 saturation is 96% on room air. HEENT: His head is atraumatic and normocephalic. Eyes are PERRLA. Sclerae are nonicteric. Oral mucosa is pink. His oral mucosa is moist. NECK: Supple. LUNGS: Clear. HEART: S1 and S2 normal. No S3. No S4. ABDOMEN: Soft, nontender, nondistended. EXTREMITIES: No clubbing, cyanosis, or edema. Pulses are diminished on both tibialis posterior and dorsalis pedis arteries similar bilaterally. NEUROLOGICAL: He follows my commands. He moves his all 4 extremities. There is no any motor or sensory deficits. LABORATORY DATA: Labs showed white count of 9.4, hemoglobin 14.9, hematocrit 43.4, platelet count 150,000. Sodium 142, potassium 3.7, chloride 111, CO2 of 23, BUN 11, creatinine 0.8, glucose 115. AST is 108. Troponin I 13.069 and the next level is 23.132. IMPRESSION: [id number] elevation myocardial infarction. The patient is on Lovenox and Plavix, and was seen by steel fitter, Dr. Paul, who knows him quite well and the main problem with this patient is noncompliant he does not take any medicine. We will continue his current regimen, which includes statin, Coreg, Plavix, full dose of Lovenox, lisinopril. We will continue his close monitoring and further recommendation from steel fitter. Job ID: [id number]
--- NOTE | 2019-04-26 10:47 | CON ---
DATE OF CONSULTATION: 04/26/2019 REASON FOR CONSULTATION: History of congestive heart failure, recent defibrillator generator change, chest pain, noncompliance, and myocardial infarction. HISTORY OF PRESENT ILLNESS: Mr. Villanueva is a 53-year-old patient who was previously seen here last month by Dr. Mohan. The patient presented to the hospital with his defibrillator beeping indicating it was end-of-life. The patient had gone ALEXEY in the summer. He had successful replacement of his defibrillator generator, and he was also started on heart failure medications including carvedilol, lisinopril, and aspirin. The patient went home as he did not take any of his medicines. He said "my family hides my medicines from me." The patient was not taking any medicines prior to the admission either. The patient was not even taking aspirin. The patient states he has stopped smoking several years ago. He denies drug use. Home medications which were prescribed were lisinopril, cephalexin, carvedilol, atorvastatin, and aspirin, but he did not take any medicine. It was noted on the previous notes that he also was not taking any medicines or doing any followup prior to the recent admission. The patient is pain-free now. The patient had the onset of pain yesterday at 5 or 5:30 in the afternoon. The patient came here, had relief of pain. Then, in the emergency room, EKG showed paced rhythm, but it did show look like anterior injury pattern. The patient, however, was pain-free at that point. REVIEW OF SYSTEMS: CONSTITUTIONAL: No significant weight loss. VISION: No changes. HEARING: No changes. PULMONARY: No cough or wheezing. GASTROINTESTINAL: No nausea, vomiting, or diarrhea. SKIN: No rashes. The patient appears to have very poor insight into his problem. PAST MEDICAL HISTORY: His past history said he had myocardial infarction in 1994. He is really not sure which hospital he was in. He is also not sure where defibrillator was placed. When I asked him he says yes he thinks so. He said the defibrillator was placed 16 years ago, and he does have a generator change, but he has a biventricular device that seems unlikely. The patient is really unsure about all of these details uncertain. PHYSICAL EXAMINATION: GENERAL: This is a pleasant 53-year-old man. He is alert and oriented. VITAL SIGNS: Blood pressure earlier 170/80, pulse 70 and regular. EYES: Sclerae nonicteric. Mouth, mucous membranes moist. NECK: Supple. No lymphadenopathy. LUNGS: Clear. No wheezing. CARDIAC: Normal S1, normal S2. There is no murmur, rub, or gallop. ABDOMEN: Obese, nontender. EXTREMITIES: No clubbing. No cyanosis. There is no edema. DIAGNOSTIC STUDIES: EKG reveals atrial-sensed biventricular-paced rhythm with ST elevation and biphasic T-waves with ventricular bigeminy. The patient as mentioned has been pain-free since yesterday after arrival to the emergency room. PERTINENT LABORATORY: His troponin last night was 5.5, it was initially 3.8, and this morning, it is 23. ASSESSMENT: 1. History of ischemic cardiomyopathy with ejection fraction of 15% to 20% per echocardiogram done previous admission last month. 2. Recent defibrillator generator change. 3. Myocardial infarction. 4. History of noncompliance before and after generator change. The patient states "my family hides my medicines.". 5. The patient was not even taking aspirin. 6. I did not take any of his medicines after he was released home including the PAULO inhibitors, beta blockers, aspirin, or statin. 7. The patient also was taking no medicine prior to that admission, he has a long history of noncompliance, he was not getting followed up for the defibrillator, he is not seeing any physicians. 8. It is unclear about the patient's thought process, but it does not seem appropriate at this time. 9. The patient is pain-free now. At this time, it looks like medical therapy is the best option even if we go to the metallurgy laboratory technician and if he has an occluded left anterior descending artery, if we open it, if he does not take the medicines, there be a high risk of stent thrombosis, which would actually even be worse than if he is not open it at all. The prognosis unfortunate for this gentleman is likely poor. He already had a low ejection fraction and has a history of severe noncompliance. The patient agrees with this plan and wishes to be treated medically. Job ID: [id number]
[2019-04-26 11:57] LABS: Hemoglobin 15.4 g/dL (14.0-18.0); Platelet Count 154 thou/uL (130-400)
[2019-04-26] MEDS: Atorvastatin Calcium 40 MG TAB PO SCH (20:35)
[2019-04-27] MEDS: Enoxaparin Sodium 100 MG/ML SYRINGE SC SCH ×2 (08:31→21:28)
[2019-04-27] MEDS: Carvedilol 6.25 MG TAB PO SCH ×2 (08:32→17:47)
[2019-04-27] MEDS: Famotidine 20 MG TAB PO SCH ×2 (08:32→21:29)
[2019-04-27] MEDS: Lisinopril 10 MG TAB PO SCH ×2 (08:32→21:28)
[2019-04-27] MEDS: Clopidogrel Bisulfate 75 MG TAB PO SCH (08:32)
[2019-04-27] MEDS: Aspirin 325 mg Enteric Coated Tablet PO SCH (08:32)
[2019-04-27 10:10] LABS: Anion Gap 14 mmol/L (10-20); BUN (Urea Nitrogen) 11 mg/dL (8.4-25.7); Calc. Creatinine Clearance 154 mL/min (70-130); Calcium 9.2 mg/dL (7.8-10.44); Carbon Dioxide 21 mmol/L (22-29); Chloride 108 mmol/L (98-107); Estimated GFR-MDRD Greater than 90; Glucose 115 mg/dL (70-105); Magnesium 2.1 mg/dL (1.6-2.6); Potassium 3.8 mmol/L (3.5-5.1); Sodium 139 mmol/L (136-145)
[2019-04-27] MEDS ORDERED: Bisacodyl 5 MG TAB PO SCH (10:30)
--- NOTE | 2019-04-27 10:59 | PRG ---
DATE OF SERVICE: 04/27/2019 SUBJECTIVE: The patient is seen and examined at the bedside. He is not complaining about any problems. He did not have bowel movement after he had dose of milk of magnesia yesterday. According to the monitoring, he had some episodes of VT and paroxysmal atrial tachycardia. PHYSICAL EXAMINATION: VITAL SIGNS: Blood pressure is 134/75, pulse is 87, temperature is 99.3, respiratory rate is 20, and O2 saturation is 95% on room air. His maximal temperature is 100.1 yesterday at 16:05. IMPRESSION: 1. Myocardial infarction. 2. Ischemic cardiomyopathy with LVEF at 15% to 20% on recent echo. 3. Noncompliance. 4. Constipation. 5. Low-grade fever of unclear etiology. PLAN: Wood Type Cutter recommends medical therapy since he is very noncompliant. We will check his urine for possible source of infections since he has low-grade fever. We will continue his current regimen, which includes aspirin, atorvastatin, carvedilol, Plavix, full dose of Lovenox, Pepcid, and lisinopril. Job ID: [id number]
[2019-04-27] MEDS ORDERED: Potassium Chloride 20 MEQ TAB PO SCH (14:00)
[2019-04-27] MEDS ORDERED: Communication Order-Pharmacy FS SCH (14:00)
--- NOTE | 2019-04-27 14:09 | PRG ---
DATE OF SERVICE: 04/27/2019 SUBJECTIVE: Mr. Villanueva has no chest pain or pressure. He denies shortness of breath, but intermittently, he does take very deep breaths. OBJECTIVE: VITAL SIGNS: His blood pressure 143/89, pulse 73 and regular. LUNGS: Clear. CARDIAC: Normal S1, normal S2. ABDOMEN: Soft, nontender. ASSESSMENT: 1. Coronary artery disease, likely very severe. 2. History of severe noncompliance with medications. 3. The patient seems to have poor insight into his problem and the importance of taking medicines, he was not taking his medicines before or after the recent defibrillator generator change. He had not be getting followup about the defibrillator ALEXEY for many months since last summer. PLAN: We will keep n.p.o. until for possible cardiac catheterization tomorrow. Discussed the procedure with this gentleman. He says he agrees to proceed, if we wish to do so. I told him, if he has a stent that actually essentially take aspirin and Plavix. It is not completely clear in my mind that he would do so. Hopefully, other family can be available. I have not seen family during this hospitalization. We will discuss with Dr. Mohan. Job ID: [id number]
[2019-04-27 14:19] LABS: Bilirubin Negative (Negative); Blood, Urine Negative (Negative); Clarity Clear (Clear); Glucose, Urine (Dipstick) 30 mg/dL (Negative); Leukocyte Negative Leu/uL (Negative); Nitrite Negative (Negative); Protein, Urine (Dipstick) 30 mg/dL (Neg-Trace)
[2019-04-27] MEDS ORDERED: Sodium Chloride 0.9% 1,000 ML IV SCH (14:45)
--- NOTE | 2019-04-27 16:28 | EKG ---
Test Reason : Blood Pressure : / mmHG Vent. Rate : 076 BPM Atrial Rate : 076 BPM P-R Int : 138 ms QRS Dur : 152 ms QT Int : 502 ms P-R-T Axes : 040 102 -30 degrees QTc Int : 564 ms Electronic ventricular pacemaker Ventricular bigeminy Probable Anterior injury pattern Confirmed by DR. Leia SHAH ([id number]) on 04/27/2019 4:28:16 PM Referred By: ALYSSA Confirmed By:DR. Leia SHAH
[2019-04-27] MEDS: Atorvastatin Calcium 40 MG TAB PO SCH (21:28)
[2019-04-28] MEDS ORDERED: Sodium Chloride 0.9% 1,000 ML IV SCH (06:00)
[2019-04-28] MEDS: Clopidogrel Bisulfate 75 MG TAB PO SCH (06:14)
[2019-04-28] MEDS: Famotidine 20 MG TAB PO SCH ×2 (06:14→20:11)
[2019-04-28] MEDS: Lisinopril 10 MG TAB PO SCH ×2 (06:14→20:11)
[2019-04-28] MEDS: Carvedilol 6.25 MG TAB PO SCH ×2 (06:14→17:11)
[2019-04-28] MEDS: Aspirin 325 mg Enteric Coated Tablet PO SCH (06:14)
[2019-04-28 07:06] LABS: Anion Gap 13 mmol/L (10-20); BUN (Urea Nitrogen) 11 mg/dL (8.4-25.7); Calc. Creatinine Clearance 160 mL/min (70-130); Calcium 8.9 mg/dL (7.8-10.44); Carbon Dioxide 21 mmol/L (22-29); Chloride 107 mmol/L (98-107); Estimated GFR-MDRD Greater than 90; Glucose 107 mg/dL (70-105); Potassium 3.6 mmol/L (3.5-5.1); Sodium 137 mmol/L (136-145)
[2019-04-28] MEDS ORDERED: Iopamidol 370 76% 100 ML VIAL ONE (10:54)
[2019-04-28] MEDS ORDERED: Heparin (Artline) 1,000 ML ONE (11:08)
[2019-04-28] MEDS ORDERED: Fentanyl 100 MCG/2 ML VIAL ONE (11:09)
[2019-04-28] MEDS ORDERED: Lidocaine 1% (PF) 30 ML VIAL ONE (11:09)
[2019-04-28] MEDS ORDERED: Midazolam HCl 2 mg/2 ml Vial ONE (11:09)
[2019-04-28] MEDS ORDERED: Metoprolol Tartrate 5 MG/5 ML VIAL ONE (12:08)
[2019-04-28] MEDS ORDERED: Nitroglycerin 2% Ointment 1 INCH/1 GM Packet ONE (12:11)
[2019-04-28] MEDS ORDERED: Nitroglycerin 0.4 MG TAB (25 Tab Bottle) SL PRN (12:40)
[2019-04-28] MEDS ORDERED: Sodium Chloride 0.9% 200 ML IV PRN (12:40)
[2019-04-28] MEDS ORDERED: Acetaminophen/Codeine 30-300mg Tablet PO PRN ×2 (12:40)
--- NOTE | 2019-04-28 15:39 | PRG ---
DATE OF SERVICE: 04/28/2019 Mr. Villanueva underwent cardiac catheterization today. Please see the notes on the results. He does have an LAD lesion, which could potentially be stented. The distal LAD is chronically occluded. I went by to check with the patient a couple of hours after a catheterization, the patient was sitting up at the bedside eating. He had been instructed to be lying flat for 3 hours and in bed for 4 hours with sitting up, eating. It is not clear that the patient will take dual-antiplatelet drugs or even single-antiplatelet drugs for any length of time. Before committing to stent implantation, we need to make sure he can take these medicines. He needs to at least show that he can take these medicines prior to stent implantation, and if we placed the stents and he does not take aspirin and Plavix, the risk of stent thrombosis and will be increased. For now, we will treat him medically and adjust his medicines. Job ID: [id number]
[2019-04-28] MEDS ORDERED: Clopidogrel Bisulfate 300 MG TAB PO SCH (18:00)
--- NOTE | 2019-04-28 19:26 | PRG ---
DATE OF SERVICE: 04/28/2019 SUBJECTIVE: The patient seen at bedside, lying in the bed. Denies any complaints other than mild cough. Denies chest pain, nausea, vomiting, diarrhea, or shortness of breath. The patient is status post cardiac cath and noted to have LAD disease, but no stenting was offered due to the patient noncompliance issue and not following with the medication recommendation. OBJECTIVE: VITAL SIGNS: Blood pressure 141/90, temperature 98.2, pulse 89, respirations 16, and oxygen saturation 98%. GENERAL: The patient lying in bed comfortably, not in any distress. HEENT: Conjunctivae normal. Oral mucosa moist. NECK: Supple. No JVD. No lymphadenopathy. CHEST: Normal vesicular breathing. HEART: Sound normal. ABDOMEN: Soft and benign. No tenderness or visceromegaly. EXTREMITIES: Negative edema of feet. No rash. No cyanosis. LABORATORY DATA: BMP unremarkable. Creatinine 0.76. IMPRESSION: 1. Yxe-QP-[id number] myocardial infarction, status post cardiac cath with LAD disease. However, Cardiology thinking of stenting with the patient noncompliance issue as a high risk for in-stent rethrombosis. The patient completely noncompliance with precautions. We will continue to monitor further intervention by Cardiology. 2. Ischemic cardiomyopathy. Continue to monitor fluid status. Currently stable. 3. Noncompliance. The patient counseled compliance education. 4. Deep venous thrombosis and gastrointestinal prophylaxis. PLAN: Discussed with the patient and nursing staff. Job ID: [id number]
[2019-04-28] MEDS: Atorvastatin Calcium 40 MG TAB PO SCH (20:11)
[2019-04-29 04:11] LABS: #Eosinphils 0.1 thou/uL (0.0-0.7); #Lymphocytes 1.6 thou/uL (1.20-3.40); #Monocytes 0.7 thou/uL (0.11-0.59); #Neutrophils 7.8 thou/uL (1.40-6.50); %Basophils 0.2 % (0.0-1.0); %Eosinophils 0.7 % (0.0-10.0); %Lymphocytes 15.8 % (21.0-51.0); %Monocytes 6.6 % (0.0-10.0); %Neutrophils 76.7 % (42.0-75.0); Hemoglobin 13.4 g/dL (14.0-18.0); Mean Corpuscular HGB CONC 33.4 g/dL (32.0-36.0); Mean Corpuscular Volume 98.7 fL (78.0-98.0); Mean Platelet Volume 9.4 fL (7.4-10.4); Platelet Count 139 thou/uL (130-400); RBC Distribution Width 11.8 % (11.5-14.5); Red Blood Cell (RBC) Count 4.06 mill/uL (4.70-6.10); White Blood Cell (WBC) Count 10.1 thou/uL (4.8-10.8)
[2019-04-29 04:33] LABS: Anion Gap 14 mmol/L (10-20); BUN (Urea Nitrogen) 13 mg/dL (8.4-25.7); Calc. Creatinine Clearance 147 mL/min (70-130); Carbon Dioxide 22 mmol/L (22-29); Chloride 108 mmol/L (98-107); Estimated GFR-MDRD Greater than 90; Glucose 114 mg/dL (70-105); Potassium 3.5 mmol/L (3.5-5.1); Sodium 140 mmol/L (136-145)
[2019-04-29] MEDS: Carvedilol 6.25 MG TAB PO SCH ×2 (08:34→16:42)
[2019-04-29] MEDS: Clopidogrel Bisulfate 75 MG TAB PO SCH (08:34)
[2019-04-29] MEDS: Famotidine 20 MG TAB PO SCH ×2 (08:34→20:03)
[2019-04-29] MEDS: Aspirin 325 mg Enteric Coated Tablet PO SCH (08:34)
[2019-04-29] MEDS: Lisinopril 10 MG TAB PO SCH ×2 (08:34→20:03)
[2019-04-29 09:39] LABS: Calc. Creatinine Clearance 160 mL/min (70-130); Estimated GFR-MDRD Greater than 90
--- NOTE | 2019-04-29 14:45 | PRG ---
DATE OF SERVICE: 04/29/2019 SUBJECTIVE: The patient seen at bedside. Complains of mild stuffy nose. Otherwise, denies any chest pain. Denies shortness of breath, headache, dizziness, nausea, vomiting, diarrhea, fever. OBJECTIVE: VITAL SIGNS: Blood pressure 138/74, temperature 98.3, pulse 71, respirations 20, oxygen saturation 99%. GENERAL: The patient is lying in bed comfortably, not in distress. HEENT: Conjunctivae normal. Oral mucosa moist. NECK: Supple. No JVD. No lymphadenopathy. CHEST: Normal vesicular breathing. HEART: Sounds normal. ABDOMEN: Soft, benign, nontender. No visceromegaly. EXTREMITIES: Negative edema in feet. SKIN: No rash. No cyanosis. LABORATORY DATA: CBC unremarkable. BMP unremarkable. IMPRESSION: 1. Tqg-IP-btwkncuso myocardial infarction, status post cardiac cath with left anterior descending disease. However, due to noncompliance issue with the patient, Cardiology thinking, high risk for in-stent rethrombosis. Discussed with the patient. He says he lives with his son and he will comply with the medication therapy. We will await Cardiology recommendation. Discussed with Dr. Paul , Dr. Mohan. will evaluate the patient. We will await further recommendation. 2. Ischemic cardiomyopathy. Continue monitor for Fluid status . Currently stable. Denies any chest pain. 3. Noncompliance. The patient counseled compliance with the medication. 4. Deep venous thrombosis and gastrointestinal prophylaxis. PLAN: Discussed with the patient and nursing staff. Job ID: [id number] MTDD
--- NOTE | 2019-04-29 15:29 | PQF ---
CLINICAL DOCUMENTATION IMPROVEMENT CLARIFICATION FORM: ICD-10 Updated PLEASE DO AN ADDENDUM TO THE PROGRESS NOTE WITH ANY DOCUMENTATION UPDATES OR ADDITIONS AND CARRY THROUGH TO DC SUMMARY. THANK YOU. DATE: 04/29/2019 ATTN: Dr. Buitrago Please exercise your independent, professional judgment in responding to the clarification form. Clinical indicators are provided on the bottom of this form for your review Please check appropriate box(s): AMI TYPE: [ ] Type 1 DC (STEMI) (Please specify site and artery - see below) SITE: [ ] Anterior [ ] Apical [ ] Lateral [ ] Inferior [ ] Posterior [ ] Q Wave [ ] Septal [ ] Unable to Determine SPECIFIC ARTERY (Based on site) [ ] Left Main Coronary [ ] Diagonal [ ] Left Anterior Descending [ ] Oblique Marginal [ ] Right Coronary Artery [ ] Unable to Determine [ ] Left Circumflex [ X ] Type 1 DC (NSTEMI) [ ] Other diagnosis [ ] Unable to determine In addition, please specify: Present on Admission (POA): [ ] Yes [ ] No [ ] Unable to determine CLINICAL INDICATORS - SIGNS / SYMPTOMS / LABS / RESULTS AND LOCATION IN EMR 04/26 (Humberto): EKG reveals atrial-sensed biventricular -paced rhythm with ST elevation and biphasic T-waves with ventricular bigeminy. troponin last night was 5.5, it was initially 3.8, and this morning it is 23 Assessment: Myocardial infarction PN 04/27 (Mitzy) Myocardial infarction PN 04/28-04/29 (Minna): Sfi-DR-[id number] myocardial infarction RISKS: H&P 04/25: PMH: CHF, HTN, diabetes, has had DC in the past. AICD. TREATMENT: H&P 04/15: The pt was given a loading dose of Lovenox and Plavix in the ER. Cardiology Consult 04/26 04/28: [facility] Thank you, Yue (This form is maintained as a part of the permanent medical record) 2014 [employer]. All Rights Reserved Yue Welch RN, BSN [email or web address] Office: [phone] [facility]
--- NOTE | 2019-04-29 15:52 | PQF ---
CLINICAL DOCUMENTATION IMPROVEMENT CLARIFICATION FORM: ICD-10 Updated PLEASE DO AN ADDENDUM TO THE PROGRESS NOTE WITH ANY DOCUMENTATION UPDATES OR ADDITIONS AND CARRY THROUGH TO DC SUMMARY. THANK YOU. DATE: 04/29/2019 ATTN: Dr. Buitrago Please exercise your independent, professional judgment in responding to the clarification form. Clinical indicators are provided on the bottom of this form for your review Please check appropriate box(s): HEART FAILURE: acute on chronic systolic POA A. TYPE [ ] Chronic Systolic / HFrEF [ ] Chronic Diastolic / HFpEF [ ] Chronic Combined Systolic/Diastolic [ ] Hypertensive Heart Disease [ ] Other diagnosis [ ] Unable to determine In addition, please specify: Present on Admission (POA): [ ] Yes [ ] No [ ] Unable to determine For continuity of documentation, please document condition throughout progress notes and discharge summary. Thank You. CLINICAL INDICATORS - SIGNS / SYMPTOMS / LABS / RESULTS AND LOCATION IN EMR 04/26 (Humberto) History of congestive heart failure, recent defibrillator generator change. History of ischemic cardiomyopathy with ejection fraction of 15% to 20% per echocardiogram done previous admission last month. 04/27 ( Mitzy) Ischemic cardiomyopathy with LVEF at 15% to 20% on recent echo. RISKS: H&P 04/25: PMH: CHF, HTN, diabetes. AICD. 04/27 (Humberto) Coronary artery disease, likely very severe. TREATMENT: H&P 04/26: Restart the coreg MAR: Order 04/26: Lisinopril 10 mg po BID Thank you, Yue (This form is maintained as a part of the permanent medical record) 2014 [employer]. All Rights Reserved Yue Welch RN, BSN [email or web address] Office: [phone] [facility]
[2019-04-29] MEDS: Atorvastatin Calcium 40 MG TAB PO SCH (20:03)
[2019-04-30] MEDS: Carvedilol 6.25 MG TAB PO SCH ×2 (08:50→16:46)
[2019-04-30] MEDS: Aspirin 325 mg Enteric Coated Tablet PO SCH (08:50)
[2019-04-30] MEDS: Famotidine 20 MG TAB PO SCH (08:51)
[2019-04-30] MEDS: Clopidogrel Bisulfate 75 MG TAB PO SCH (08:51)
[2019-04-30] MEDS: Lisinopril 10 MG TAB PO SCH (08:51)
--- NOTE | 2019-04-30 12:24 | PDISCHARGE ---
Discharge - Disposition Disposition: HOME HEALTH - Ambulatory Orders Prescriptions: Aspirin [Ecotrin Regular Strength] 325 mg PO DAILY #30 tab Atorvastatin Calcium [Lipitor] 40 mg PO HS #30 tab Carvedilol [Coreg] 12.5 mg PO BID #60 tab Clopidogrel Bisulfate [Plavix] 75 mg PO DAILY #30 tab Famotidine [Pepcid] 20 mg PO BID #60 tab Lisinopril [Zestril] 10 mg PO BID #60 tab - Patient Instructions Pre-Printed Education: Heart Attack, [id number] Additional Instructions: no heavy lifting over 10 lbs for 2 weeks no strenuous activity Dr Hagan 1 month Home health nursing and family to keep log of medication compliance and bring to cardiology appointment Care Plan Goals: NURSINGPlease ensure ALL care measures for AMI are addressed prior to discharge and that patient has a 7 day follow up appointment with either PCP or Cardiology. Call CV Program for assistance [phone] or [phone] - Referrals and PCP Follow-Up Referrals and PCP Follow-Up: Senior Renewal: Terell [Outside] ([facility] - [phone] [place] [address]) Comfort Egan FNP [MD Not on Staff] - 05/02/19 10:15 am (Please Bring ALL medicine bottles to this appointment as well as hospital discharge paperwork.) Hasmukh Mohan MD [Active] - 06/05/19 1:30 pm () - Nourishment Instructions Nourishment:: Heart Healthy Diet
--- NOTE | 2019-04-30 12:24 | PDOC.HOSPP ---
- Objective Vital Signs & Weight: Vital Signs (12 hours) Temp Pulse Resp BP BP BP Pulse Ox 04/30/19 11:30 97.8 F 76 16 148/89 H 100 04/30/19 08:51 141/95 H 04/30/19 08:50 141/95 H 04/30/19 08:43 98.1 F 78 16 141/95 H 95 04/30/19 03:40 98.2 F 73 20 116/77 92 L Weight Weight 223 lb 1.6 oz I&O: 04/29/19 04/30/19 05/01/19 06:59 06:59 06:59 Intake Total 500 1395 240 Output Total 525 Balance 500 870 240 Result Diagrams: 04/29/19 03:31 04/29/19 09:07 Hospitalist ROS - Medication Medications: Active Medications Generic Name Dose Route Start Last Admin Trade Name Freq PRN Reason Stop Dose Admin Acetaminophen 650 mg 04/25/19 22:52 04/26/19 16:46 Tylenol PO 650 mg Q4H PRN Administration Headache/Fever/Mild Pain (1-3) Aspirin 325 mg 04/27/19 09:00 04/30/19 08:50 Ecotrin PO 325 mg DAILY SRINIVAS Administration Atorvastatin Calcium 40 mg 04/26/19 21:00 04/29/19 20:03 Lipitor PO 40 mg HS SRINIVAS Administration Carvedilol 12.5 mg 04/28/19 17:00 04/30/19 08:50 Coreg PO 12.5 mg BID-WM SRINIVAS Administration Clopidogrel Bisulfate 75 mg 04/26/19 09:00 04/30/19 08:51 Plavix PO 75 mg DAILY SRINIVAS Administration Famotidine 20 mg 04/26/19 09:00 04/30/19 08:51 Pepcid PO 20 mg BID SRINVIAS Administration Lisinopril 10 mg 04/26/19 09:00 04/30/19 08:51 Zestril PO 10 mg BID SRINIVAS Administration Sodium Chloride 10 ml 04/25/19 22:52 04/29/19 08:34 Flush - Normal Saline IVF 10 ml PRN PRN Administration Saline Flush
[2019-04-30 15:38] VITALS: BP 133/78; TEMP 98.4
== END 2019-04-30 19:35 | disposition home health service (06) | DRG 280 ==
LOC: ERS 18:49 → 2NO 23:12
PROVIDERS: ADMIT Family Medicine; ATTEND Internal Medicine
PROC: 4A023N7 Measurement of Cardiac Sampling and Pressure, Left Heart, Percutaneous Approach (ICD-10-PCS; principal; 2019-04-28)
PROC: B2111ZZ Fluoroscopy of Multiple Coronary Arteries using Low Osmolar Contrast (ICD-10-PCS; 2019-04-28)
PROC: B2151ZZ Fluoroscopy of Left Heart using Low Osmolar Contrast (ICD-10-PCS; 2019-04-28)
DX: I21.4 Non-ST elevation (NSTEMI) myocardial infarction (principal); I50.23 Acute on chronic systolic (congestive) heart failure; I11.0 Hypertensive heart disease with heart failure; Z86.73 Personal history of transient ischemic attack (TIA), and cerebral infarction without residual deficits; E11.9 Type 2 diabetes mellitus without complications; Z95.0 Presence of cardiac pacemaker; Z87.891 Personal history of nicotine dependence; E78.5 Hyperlipidemia, unspecified; I25.5 Ischemic cardiomyopathy; Z91.14 Patient's other noncompliance with medication regimen; K59.00 Constipation, unspecified; I25.10 Atherosclerotic heart disease of native coronary artery without angina pectoris
CPT/HCPCS: 36415; 36416; 71045; 76942; 80048; 80053; 81003; 82553; 82565; 83735; 84484; 85025; 93005; 93010; 93306; 93458; 93798; 94760; 96372; 99152; 99153; C1769; J1644; J1650; J2001; J2250; J3010; Q9967

== ENCOUNTER 2019-04-30 23:44 | Inpatient (IN) | payer MEDICARE ==
[2019-05-01 00:35] LABS: #Basophils 0.1 thou/uL (0.0-0.2); #Eosinphils 0.2 thou/uL (0.0-0.7); #Lymphocytes 1.7 thou/uL (1.20-3.40); #Monocytes 0.5 thou/uL (0.11-0.59); #Neutrophils 5.4 thou/uL (1.40-6.50); %Basophils 0.8 % (0.0-1.0); %Eosinophils 2.1 % (0.0-10.0); %Lymphocytes 21.1 % (21.0-51.0); %Monocytes 6.9 % (0.0-10.0); %Neutrophils 69.2 % (42.0-75.0); Hemoglobin 13.9 g/dL (14.0-18.0); Mean Corpuscular HGB CONC 34.1 g/dL (32.0-36.0); Mean Corpuscular Hemoglobin 33.8 pg (27.0-31.0); Mean Corpuscular Volume 99.2 fL (78.0-98.0); Mean Platelet Volume 9.1 fL (7.4-10.4); Platelet Count 184 thou/uL (130-400); RBC Distribution Width 11.8 % (11.5-14.5); White Blood Cell (WBC) Count 7.9 thou/uL (4.8-10.8)
[2019-05-01 00:58] LABS: ALT (SGPT) 36 U/L (8-55); AST (SGOT) 35 U/L (5-34); Alkaline Phosphatase 65 U/L (40-110); Anion Gap 15 mmol/L (10-20); BUN (Urea Nitrogen) 16 mg/dL (8.4-25.7); Bilirubin, Total 0.8 mg/dL (0.2-1.2); Calc. Creatinine Clearance 0 mL/min (70-130); Calcium 9.3 mg/dL (7.8-10.44); Carbon Dioxide 23 mmol/L (22-29); Chloride 109 mmol/L (98-107); Estimated GFR-MDRD 89; Globulin 3.8 g/dL (2.4-3.5); Glucose 130 mg/dL (70-105); Potassium 3.6 mmol/L (3.5-5.1); Protein, Total 7.8 g/dL (6.0-8.3); Sodium 143 mmol/L (136-145)
[2019-05-01 01:03] LABS: CKMB 3.4 ng/mL (0-6.6)
[2019-05-01] MEDS ORDERED: Amiodarone 150 MG/3 ML VIAL ONE (04:55)
[2019-05-01] MEDS ORDERED: Amiodarone In Dextrose 200 ML IVPB SCH (05:00)
[2019-05-01] MEDS ORDERED: Acetaminophen 500 MG TAB PO PRN (05:17)
[2019-05-01] MEDS ORDERED: Ondansetron PF 4 MG/2 ML Vial IVP PRN (05:17)
[2019-05-01] MEDS ORDERED: Ondansetron ODT 4 MG TAB PO PRN (05:17)
[2019-05-01] MEDS ORDERED: Lidocaine 2 gm/D5W 500 ml 500 ML IVPB SCH ×2 (05:30→05:45)
[2019-05-01] MEDS ORDERED: D5W IVPB SCH (05:45)
[2019-05-01] MEDS ORDERED: Amiodarone 450 MG in Dextrose 5% in Water 250 ML IVPB SCH (05:45)
[2019-05-01] MEDS ORDERED: LIDOCAINE IVPB SCH (05:45)
[2019-05-01] MEDS ORDERED: Lidocaine 2 gm/D5W 500 ml 500 ML ONE (05:51)
--- NOTE | 2019-05-01 06:48 | HP ---
PRIMARY CARE PROVIDER: Jerry in [place], [place]. CHIEF COMPLAINT: AICD firing. HISTORY OF PRESENT ILLNESS: This is a 53-year-old male, who was admitted on 04/26/2019 through 04/29/2019, for chest pain in the context of known coronary artery disease and medication noncompliance. The patient's history also is significant for recent myocardial infarction treated medically due to the patient's noncompliance. The patient also undergone recent AICD generator change within the last 2 weeks when he noted the ICD firing at home. The patient states the device sounded an alarm, at which point discharged. The patient states he received 2 shocks and felt lightheaded and short of breath. Due to the patient's medication noncompliance, discussions are with Cardiology Service for general medical management and not pursuing aggressive intervention including cardiac catheterization. In the emergency room, the patient underwent Medtronic defibrillator interrogation confirming ventricular tachycardia episodes with firing of the device terminating the events. The patient had subsequent ICD firing in the emergency room, at which point, the patient was initiated on amiodarone bolus followed by an infusion with additional lidocaine bolus and infusion. PAST MEDICAL HISTORY: 1. Congestive heart failure with ejection fraction of 15% to 20%. 2. Ischemic cardiomyopathy with ejection fraction 15% to 20%. 3. Non-ST elevation myocardial infarction, medically managed. 4. Hypertension. 5. Hyperlipidemia. 6. History of multiple CVAs. 7. Diabetes mellitus, type 2. PAST SURGICAL HISTORY: 1. Status post AICD generator replacement. 2. Status post pacemaker AICD placement. CURRENT MEDICATIONS: 1. Aspirin 81 mg p.o. daily. 2. Lipitor 40 mg p.o. at bedtime. 3. Coreg 12.5 mg p.o. b.i.d. 4. Plavix 75 mg p.o. daily. 5. Pepcid 20 mg p.o. b.i.d. 6. Lisinopril 10 mg p.o. b.i.d. ALLERGIES: NO KNOWN DRUG ALLERGIES. FAMILY HISTORY: No inheritable diseases per the patient report. SOCIAL HISTORY: Smoked over 110 pack years, none currently. No alcohol. Marijuana use active. REVIEW OF SYSTEMS: CONSTITUTIONAL: Negative for weight loss or gain, ability to conduct usual activities. SKIN: Negative for rash, itching. EYES: Negative for double vision, pain. ENT/MOUTH: Negative for nose bleeding, neck stiffness, pain, tenderness. CARDIOVASCULAR: Negative for palpitations, dyspnea on exertion, orthopnea. RESPIRATORY: Negative for shortness of breath, wheezing, cough, hemoptysis, fever or night sweats. GASTROINTESTINAL: Negative for poor appetite, abdominal pain, heartburn, nausea, vomiting, constipation, or diarrhea. GENITOURINARY: Negative for urgency, frequency, dysuria, nocturia. MUSCULOSKELETAL: Negative for pain, swelling. NEUROLOGIC/PSYCHIATRIC: Negative for anxiety, depression. ALLERGY/IMMUNOLOGIC: Negative for skin rash, bleeding tendency. Otherwise, negative except as stated per HPI. PHYSICAL EXAMINATION: VITAL SIGNS: On admission, blood pressure 169/100, pulse 92, respiratory rate 23, temperature 98.9 degrees Fahrenheit, and O2 saturation 98% on 2 L/minute by nasal cannula. GENERAL APPEARANCE: This is a 53-year-old male, alert and oriented x3, pleasant, responsive, ill appearing, in no acute distress. HEENT: Pupils are equal, round, and reactive to light and accommodation. Extraocular muscles are intact. No scleral icterus. No conjunctival injection. Nares patent. OP is clear. Teeth in poor repair. NECK: Supple. No cervical adenopathy. No thyromegaly. No carotid bruits. No JVD appreciated. Cervical spine with full active and passive range of motion. No meningeal signs noted. CHEST: Diminished breath sounds in the bases bilaterally. Occasional expiratory wheeze. CARDIOVASCULAR: S1 and S2 with distant heart sounds. No murmur, rub, or gallop appreciated. Pacemaker AICD device in the left upper chest wall. ABDOMEN: Obese, soft, nontender, and nondistended. Bowel sounds are positive in all 4 quadrants. There is no hepatosplenomegaly. No abdominal bruits. No rebound or guarding appreciated. EXTREMITIES: Warm and dry with fair turgor. No clubbing, cyanosis, or asymmetric edema appreciated. Pulses palpable distally at the dorsalis pedis, posterior tibial, and popliteal arteries bilaterally. Capillary refill less than 2 seconds. NEUROLOGIC: Cranial nerves II through XII are grossly intact. No focal or lateralizing signs appreciated. PERTINENT LABORATORY AND X-RAY FINDINGS: Sodium 143, potassium 3.6, chloride 109, CO2 of 23, BUN 16, creatinine 0.89, glucose 130, calcium 9.3, AST 35, ALT of 36, and alkaline phosphatase 65. Troponin I 23.25, previously noted 23.13 on 04/26/2019. CBC showed a white blood cell count of 7.9, hemoglobin 14, hematocrit 42, MCV 99, and platelet count 184 with normal differential. Portable chest x-ray dated 05/01/2019, by my interpretation shows chronic changes in bilateral lung christina. AICD device in left upper chest wall. No acute infiltrate identified. EKG dated 05/01/2019, by my interpretation shows demand pacemaker with heart rates in the 80s. Premature ventricular contractions noted. Left bundle-branch block noted. Medtronic device showed 2 episodes of ventricular tachycardia terminated with cardioversion. ASSESSMENT AND PLAN: 1. Ventricular tachycardia/ventricular fibrillation with automatic implantable cardioverter-defibrillator discharge. The patient will be admitted to the Critical Care Unit. We will initiate amiodarone infusion after loading dose. Start lidocaine 100 mg bolus followed by infusion at 2 mg/minute. We will consult Cardiology Service and Electrophysiology Service for evaluation and management options. Check magnesium and thyroid stimulating hormone level. Repeat electrolytes in 3 hours. Resume Coreg 12.5 mg b.i.d. Continue aspirin and Plavix. 2. Non-ST elevation myocardial infarction. Continue general medical management. Consult Cardiology Service for any further recommendations. History of noncompliance. 3. Ischemic cardiomyopathy with ejection fraction of 15% to 20%. See #1 and #2 above. Continue lisinopril 10 mg b.i.d. No current evidence of acute decompensation or volume overload. 4. Medication noncompliance. We will continue to encourage compliance with medication regimen. Case management consult for disposition planning. 5. Prophylaxis. SCDs while in bed. Pepcid 20 mg p.o. b.i.d. 6. Code status is full. Surrogate medical decision maker is the patient's daughter. Total critical care time is 60 minutes. Job ID: [id number]
--- NOTE | 2019-05-01 07:56 | RAD ---
Portable frontal chest radiograph: 05/01/2019 COMPARISON: 04/25/2019 HISTORY: Defibrillator firing FINDINGS: Multilead transvenous AICD inserted via left subclavian approach, unchanged when compared t o prior imaging. Stable prominence of the cardiac silhouette. No pneumothorax or pleural fluid. No focal consolidation or alveolar edema. IMPRESSION: Stable appearance of the chest as described above.
[2019-05-01] MEDS: Lisinopril 10 MG TAB PO SCH ×2 (08:22→20:54)
[2019-05-01] MEDS: Clopidogrel Bisulfate 75 MG TAB PO SCH (08:22)
[2019-05-01] MEDS: Aspirin 81 mg Enteric Coated Tablet PO SCH (08:22)
[2019-05-01] MEDS: Carvedilol 6.25 MG TAB PO SCH ×2 (08:22→20:54)
[2019-05-01] MEDS: Famotidine 20 MG TAB PO SCH ×2 (08:22→20:54)
[2019-05-01 08:28] LABS: Hemoglobin 13.8 g/dL (14.0-18.0); Mean Corpuscular HGB CONC 34.5 g/dL (32.0-36.0); Mean Corpuscular Hemoglobin 33.9 pg (27.0-31.0); Mean Corpuscular Volume 98.4 fL (78.0-98.0); Platelet Count 166 thou/uL (130-400); RBC Distribution Width 11.7 % (11.5-14.5); Red Blood Cell (RBC) Count 4.08 mill/uL (4.70-6.10)
--- NOTE | 2019-05-01 08:41 | CON ---
DATE OF CONSULTATION: HISTORY OF PRESENT ILLNESS: The patient is a 53-year-old gentleman, who presented after his AICD fired. The patient has a long history of coronary artery disease. He has a history of a known ischemic cardiomyopathy. He was seen initially in April of 2019 with ALEXEY on his defibrillator. This was replaced. The patient was admitted with a myocardial infarction. The patient underwent a cardiac catheterization, has been on medical therapy. He went home yesterday and his AICD fired on several occasions. The patient denied having any chest discomfort. PAST MEDICAL HISTORY: Significant for, 1. Ischemic cardiomyopathy. 2. Hypertension. 3. History of multiple CVAs. 4. Diabetes mellitus. 5. Noncompliance. PAST SURGICAL HISTORY: None. MEDICATIONS: See nursing list. ALLERGIES: NO KNOWN DRUG ALLERGIES. SOCIAL HISTORY: Long history of tobacco abuse. PHYSICAL EXAMINATION: GENERAL: This is a middle-aged gentleman, in no acute distress. VITAL SIGNS: Blood pressure is 169/100. NECK: No jugular venous distention. LUNGS: Clear to auscultation. HEART: Regular rate and rhythm. Normal S1. ABDOMEN: Nondistended. LABORATORY RESULTS: White blood cell count 7.9, hemoglobin 13.9, hematocrit 40.7, and platelets 184. Sodium 143, potassium 3.6, chloride 109, bicarbonate 23, BUN 16, and creatinine 0.89. CPK-MB was 3.4, troponin 23. IMPRESSION: 1. Status post automatic implantable cardioverter-defibrillator firing. 2. Recent myocardial infarction. 3. Ischemic cardiomyopathy. 4. Hypertension. 5. Noncompliance. PLAN: This gentleman presents after his AICD fired. The patient was placed on IV amiodarone and lidocaine. We will continue the patient on amiodarone. We will discontinue his lidocaine. We will follow this patient with you through his hospitalization. Job ID: [id number]
[2019-05-01 08:43] LABS: Anion Gap 13 mmol/L (10-20); BUN (Urea Nitrogen) 14 mg/dL (8.4-25.7); Calc. Creatinine Clearance 162 mL/min (70-130); Calcium 9.1 mg/dL (7.8-10.44); Carbon Dioxide 22 mmol/L (22-29); Chloride 110 mmol/L (98-107); Estimated GFR-MDRD Greater than 90; Glucose 135 mg/dL (70-105); Potassium 3.5 mmol/L (3.5-5.1); Sodium 141 mmol/L (136-145)
[2019-05-01 08:51] LABS: Band 2 % (5-11); Eosinophils 1 % (0-10); Lymphocytes 23 % (21-51); MDiff Complete? YES; Monocytes 7 % (0-10); Neutrophil 67 % (42-75); RBC Morphology Normal
[2019-05-01] MEDS ORDERED: Aspirin 325 mg Enteric Coated Tablet PO SCH (09:00)
[2019-05-01] MEDS: Amiodarone 200 MG TAB PO SCH ×2 (14:35→20:53)
--- NOTE | 2019-05-01 18:31 | PDOC.EVN ---
Event Note - Event Note Event Note: Patient known to me, no further shocks, patient seen and examined, no significant changes from H&P this AM, hospitalist service will continue to follow daily. Appreciate cardiology evaluation, for ICD fire for VT amiodarone continued, lidocaine discontinued
[2019-05-01] MEDS: Atorvastatin Calcium 40 MG TAB PO SCH (20:54)
--- NOTE | 2019-05-02 07:56 | CON ---
DATE OF CONSULTATION: 05/01/2019 HISTORY OF PRESENT ILLNESS: I am seeing Mr. 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 His problems are; 1. Ventricular tachycardia requiring ICD shock termination. a. ICD interrogation reveals recurrent VT episodes with clear VA dissociation with cycle lengths with rates of 222 beats per minute with 2 shocks at 35 joules and 1 ATP therapy was utilized to determine the arrhythmias. 2. History of chronic systolic congestive heart failure with ischemic cardiomyopathy and remote myocardial infarction with reduced LVEF at 15% to 20%, trace MR, trace TR on echo 04/27/2019. 3. History of a Bi-V ICD implant in the past with 6949 lead. a. Status post ICD generator change in March 2019. Currently with Medtronic XT ENDBAND SIZER-D device. The LV lead is in the RV port ( and vice versa). 4. History of diabetes. 5. Hypertension. 6. History of chronic obstructive pulmonary disease. ALLERGIES: NONE NOTED. MEDICATIONS: At home included famotidine, aspirin, Lipitor, Coreg, Plavix, Pepcid, and lisinopril. SUBJECTIVE: Mr. Villanueva came to [facility] with symptoms of palpitations, received 2 consecutive shocks. Denies passing out. No stroke- like symptoms. No neurological deficits. No preceding angina watching TV. REVIEW OF SYSTEMS: Rest of 12-point system otherwise unremarkable. In the hospital, he was evaluated. While in the ER, he has had subsequent shocks for ventricular tachycardia. He was started on amiodarone and lidocaine was also initiated. Currently, lidocaine is already stopped. He is continued on IV amiodarone loading. Cardiac enzymes are elevated. PAST MEDICAL HISTORY: As above. SOCIAL HISTORY: Patient has history of EtOH abuse and smokes over 110 pack per years. He does use marijuana. FAMILY HISTORY: Noncontributory. OBJECTIVE DATA: VITAL SIGNS: Blood pressure this morning is 197/81, heart rate 62, respirations 18, the patient is afebrile. GENERAL: He is an alert and oriented man, in no apparent distress. NECK: Supple. Jugular veins not distended. CHEST: Coarse without crackles. HEART: Sounds are regular rate and rhythm. No murmur or gallop. ABDOMEN: Benign. Bowel sounds positive. EXTREMITIES: Lower extremities without edema, clubbing, or cyanosis. Pulses are adequate. NEUROLOGIC: The patient is nonfocal. MUSCULOSKELETAL: No joint deformity. SKIN: Without rash. DATABASE: EKG is reviewed revealing initially sinus rhythm, ventricular pacing, frequent PVCs, which are left bundle, inferior axis in morphology. Interrogation of the ICD again reveals a Medtronic Viva ENDBAND SIZER-D biventricular ICD with longevity estimated to be 6.6 years. Lead parameters are adequate with impedance 418, ohms respectively. RV and SVC impedance is 48 and 72 ohms. sensing 4.9 and 14.5 mV respectively. Recurrent ventricular tachycardia episodes with 222 beats per minute are documented, one terminated by ATP therapy, two required ICD shocks. RV impedances are stable. LABORATORY DATA: Reveals white cell count 7.0, hemoglobin 13.8, platelet count is 166. Sodium 141, potassium 3.5, BUN is 14, creatinine 0.74. Troponin levels are 23.253, peak troponin. Recent left heart catheterization from 04/28/2019 was severe 2-vessel coronary artery disease. Medical therapy recommended. ASSESSMENT AND PLAN: Mr. Villanueva is a 53-year-old man with history of ischemic cardiomyopathy, severely reduced LVEF, recurrent ICD shocks required to terminate his repeated ventricular tachycardia episodes. VT episodes are clearly with VA dissociation to ventricular tachycardia and ICD is functioning adequately. Of note, he has a 6949 lead, but the RV lead is switched to the LV port and LV lead is in the RV port to avoid future noise sensing with the 6949 lead on advisory. So far though no malfunction is noted. Patient had marked troponin elevation. Recent left heart catheterization demonstrated severe disease and medical therapy is planned. We are not expecting new revascularization efforts I agree with the initiated amiodarone. We will transition to p.o. amiodarone taper. In the future, ventricular tachycardia ablation could be considered. Optimize heart failure therapy. Continue ICD monitor function which seems to be adequate at this time. We will follow up with you. Thank you again for allowing me to participate in the care of this patient. Job ID: [id number] [facility]
[2019-05-02] MEDS: Aspirin 81 mg Enteric Coated Tablet PO SCH (08:07)
[2019-05-02] MEDS: Carvedilol 6.25 MG TAB PO SCH ×2 (08:07→20:57)
[2019-05-02] MEDS: Lisinopril 10 MG TAB PO SCH ×2 (08:07→20:58)
[2019-05-02] MEDS: Clopidogrel Bisulfate 75 MG TAB PO SCH (08:07)
[2019-05-02] MEDS: Famotidine 20 MG TAB PO SCH ×2 (08:07→20:58)
[2019-05-02] MEDS: Amiodarone 200 MG TAB PO SCH ×3 (08:08→20:58)
--- NOTE | 2019-05-02 12:42 | PDOC.CPN ---
- Subjective Date: 05/02/19 Time: 08:30 Interval history: The pt seen and examined. No overnight events. No cardiac complaints. - Objective Allergies/Adverse Reactions: Allergies Allergy/AdvReac Type Severity Reaction Status Date / Time No Known Drug Allergies Allergy Verified 05/01/19 06:52 Visit Medications: Current Medications Acetaminophen (Tylenol) 1,000 mg PO Q6H PRN PRN Reason: Mild Pain (1-3) Amiodarone HCl (Cordarone) 400 mg PO TID [facility] Last Admin: 05/02/19 08:08 Dose: 400 mg Aspirin (Ecotrin) 81 mg PO DAILY [facility] Last Admin: 05/02/19 08:07 Dose: 81 mg Atorvastatin Calcium (Lipitor) 40 mg PO HS [facility] Last Admin: 05/01/19 20:54 Dose: 40 mg Carvedilol (Coreg) 12.5 mg PO BID [facility] Last Admin: 05/02/19 08:07 Dose: 12.5 mg Clopidogrel Bisulfate (Plavix) 75 mg PO DAILY [facility] Last Admin: 05/02/19 08:07 Dose: 75 mg Famotidine (Pepcid) 20 mg PO BID [facility] Last Admin: 05/02/19 08:07 Dose: 20 mg Amiodarone HCl 450 mg/ (Dextrose/Water) 259 mls @ 0 mls/hr IVPB INF [facility]; Protocol Lisinopril (Zestril) 10 mg PO BID [facility] Last Admin: 05/02/19 08:07 Dose: 10 mg Ondansetron HCl (Zofran Odt) 4 mg PO Q6H PRN PRN Reason: Nausea/Vomiting Ondansetron HCl (Zofran) 4 mg IVP Q6H PRN PRN Reason: Nausea/Vomiting Sodium Chloride (Flush - Normal Saline) 10 ml IVF Q12HR [facility] Last Admin: 05/02/19 08:08 Dose: 10 ml Sodium Chloride (Flush - Normal Saline) 10 ml IVF PRN PRN PRN Reason: Saline Flush Vital Signs & Weight: Vital Signs Temp Pulse Resp BP Pulse Ox 05/02/19 11:15 96.6 F L 69 16 164/84 H 96 05/02/19 07:20 98.7 F 66 20 137/83 95 05/02/19 05:17 95 05/02/19 03:07 97.4 F L 70 20 134/58 L 95 Weight 216 lb 9.6 oz - Physical Exam General: no apparent distress Neck: supple neck Cardiac: regular rate and rhythm, S1/S2 Lungs: decreased breath sounds Abdomen: unremarkable Skin: clear - Labs Result Diagrams: 05/01/19 08:12 05/01/19 08:12 Troponin/CKMB CK-MB (CK-2) 3.4 ng/mL (0-6.6) 05/01/19 00:24 Troponin I 23.253 ng/mL (< 0.028) H* 05/01/19 00:24 - Telemetry Sinus rhythms and dysrhythmias: other (V paced) - Assessment/Plan Assessment/Plan: 1. s/p VT episodes with 2 discharge from AICD - stable with Amiodarone, which managed by EP 2. Ischemic CMY with hx of BiV AICD placement 3. severe 2V CAD - on ASA, Coreg, statin, and Lisinopril; cont. medical tx only 4. HTN - stable 5. DM type 2 - managed by PCP 6. COPD 7. hx of CVA 8. Non-compliance MAR reviewed Pt. seen and eval. by me. I agree with the A/P by the ASH HANDLER.Chest clear. RRR.Being followed by EP also. gray
--- NOTE | 2019-05-02 14:05 | PDOC.HOSPP ---
- Subjective Encounter Date: 05/02/19 Encounter Time: 13:56 Subjective: Chief complaint: ICD shock Subjective Patient eating breakfast, denies any chest pain/shortness of breath/dizziness, no further ICD shocks. Therapy ordered as part of SNF evaluation - Objective Vital Signs & Weight: Vital Signs (12 hours) Temp Pulse Resp BP Pulse Ox 05/02/19 11:15 96.6 F L 69 16 164/84 H 96 05/02/19 07:20 98.7 F 66 20 137/83 95 05/02/19 05:17 95 05/02/19 03:07 97.4 F L 70 20 134/58 L 95 Weight Weight 216 lb 9.6 oz Most Recent Monitor Data Heart Rate from ECG 80 NIBP 131/77 NIBP BP-Mean 95 Respiration from ECG 16 SpO2 93 I&O: 05/01/19 05/02/19 05/03/19 06:59 06:59 06:59 Intake Total 462.5 Output Total 30 Balance 432.5 Result Diagrams: 05/01/19 08:12 05/01/19 08:12 Additional Labs: Accuchecks 05/01/19 20:42 POC Glucose 133 H Hospitalist ROS - Medication Medications: Active Medications Generic Name Dose Route Start Last Admin Trade Name Freq PRN Reason Stop Dose Admin Amiodarone HCl 400 mg 05/01/19 15:00 05/02/19 08:08 Cordarone PO 400 mg TID SRINIVAS Administration Aspirin 81 mg 05/01/19 09:00 05/02/19 08:07 Ecotrin PO 81 mg DAILY SRINIVAS Administration Atorvastatin Calcium 40 mg 05/01/19 21:00 05/01/19 20:54 Lipitor PO 40 mg HS SRINIVAS Administration Carvedilol 12.5 mg 05/01/19 09:00 05/02/19 08:07 Coreg PO 12.5 mg BID SRINIVAS Administration Clopidogrel Bisulfate 75 mg 05/01/19 09:00 05/02/19 08:07 Plavix PO 75 mg DAILY SRINIVAS Administration Famotidine 20 mg 05/01/19 09:00 05/02/19 08:07 Pepcid PO 20 mg BID SRINIVAS Administration Lisinopril 10 mg 05/01/19 09:00 05/02/19 08:07 Zestril PO 10 mg BID SRINIVAS Administration Sodium Chloride 10 ml 05/01/19 09:00 05/02/19 08:08 Flush - Normal Saline IVF 10 ml Q12HR SRINIVAS Administration - Exam General Appearance: NAD, awake alert Eye: PERRL, anicteric sclera ENT: normocephalic atraumatic, moist mucosa Neck: supple, no JVD Heart: RRR, no murmur, no gallops, no rubs Respiratory: CTAB, no wheezes, no rales, no ronchi Gastrointestinal: soft, non-tender, non-distended, normal bowel sounds Extremities: no cyanosis, no clubbing, no edema Skin: no lesions, no rashes Neurological: cranial nerve grossly intact, normal sensation to touch, no weakness, no focal deficits Musculoskeletal: normal tone, normal strength Psychiatric: normal affect, normal behavior, A&O x 3 Hosp A/P - Plan Patient is a 53 year old male being treated for: # ventricular fibrillation w/ ICD shocks - appreciate cardiology assistance with ICD setting management and antiarrhythmics, patient on amiodarone currently , lidocaine previously stopped - EP consulted, AICID functioning with appropriate VF shock, amiodarone to be converted to PO today, VF ablation a possibility in the future - monitor Mg/K, replete as necessary, TSH wnl this admission # NSTEMI - continue medical management, appreciate cardiology assistance # ischemic cardiomyopathy with ED of 15-20%, continue PAULO inhibitor, compensated # chronic # medication noncompliance - was previously to have management help with home health which had been set up, but now will likely look into SNF DVT/GI ppx Code status - full, daughter is surrogate decision maker Disposition - PT/OT/case management evaluation underway for SNF referral
--- NOTE | 2019-05-02 15:06 | PRG ---
DATE OF SERVICE: 05/02/2019 SUBJECTIVE: Mr. Villanueva seems to be doing well. He was transferred from ICU. No further arrhythmia episodes are noted. OBJECTIVE: VITAL SIGNS: Blood pressure is 164/84, heart rate 69, respiratory rate 16, temperature 96.6 degrees Fahrenheit. GENERAL: Alert and oriented man, in no apparent distress. NECK: Supple. Jugular veins not distended. CHEST: Coarse, no crackles. Left precordial ICD insertion site is well healed. ABDOMEN: Benign, bowel sounds positive. EXTREMITIES: Lower extremities without edema, clubbing, or cyanosis. Pulses are adequate. NEUROLOGIC: The patient is nonfocal. MUSCULOSKELETAL: Without joint swelling or deformity. SKIN: Without rash. DATABASE: EKG is reviewed. Telemetry strips reviewed, reveals sinus rhythm, occasional PVCs. ASSESSMENT AND PLAN: Mr. Villanueva is a 53-year-old man with history of congestive heart failure, ischemic cardiomyopathy, LVEF 15% to 20% on recent echocardiogram, also had two vessel coronary disease on a recent left heart catheterization, on medical management. He was admitted after ventricular tachycardia with ICD shocks. He underwent amiodarone loading, currently without recurrence, now on p.o. amiodarone taper. Currently, on 400 mg three times a day, which he is going to continue until discharge. Periodic liver function and thyroid function tests as well as pulmonary testing is recommended while on amiodarone. Avoid excessive QT prolonging agents. ICD currently adequate function by the device. CHF is well compensated currently. We will check on him if in-house on the . On discharge, he needs to be placed on amiodarone taper and strongly encouraged followup, has history of noncompliance. Job ID: [id number]
[2019-05-02] MEDS: Atorvastatin Calcium 40 MG TAB PO SCH (20:58)
[2019-05-03] MEDS: Famotidine 20 MG TAB PO SCH ×2 (09:36→21:26)
[2019-05-03] MEDS: Carvedilol 6.25 MG TAB PO SCH ×2 (09:36→21:24)
[2019-05-03] MEDS: Aspirin 81 mg Enteric Coated Tablet PO SCH (09:36)
[2019-05-03] MEDS: Amiodarone 200 MG TAB PO SCH ×3 (09:36→21:25)
[2019-05-03] MEDS: Clopidogrel Bisulfate 75 MG TAB PO SCH (09:36)
[2019-05-03] MEDS: Lisinopril 10 MG TAB PO SCH ×2 (09:37→21:25)
--- NOTE | 2019-05-03 15:50 | PDOC.CPN ---
- Subjective Date: 05/03/19 Time: 15:53 Interval history: The pt seen and examined. No overnight events. No cardiac complaints. The pt is waiting for SNF tx. - Objective Allergies/Adverse Reactions: Allergies Allergy/AdvReac Type Severity Reaction Status Date / Time No Known Drug Allergies Allergy Verified 05/01/19 06:52 Visit Medications: Current Medications Acetaminophen (Tylenol) 1,000 mg PO Q6H PRN PRN Reason: Mild Pain (1-3) Amiodarone HCl (Cordarone) 400 mg PO TID [facility] Last Admin: 05/03/19 14:58 Dose: 400 mg Aspirin (Ecotrin) 81 mg PO DAILY [facility] Last Admin: 05/03/19 09:36 Dose: 81 mg Atorvastatin Calcium (Lipitor) 40 mg PO HS [facility] Last Admin: 05/02/19 20:58 Dose: 40 mg Carvedilol (Coreg) 12.5 mg PO BID [facility] Last Admin: 05/03/19 09:36 Dose: 12.5 mg Clopidogrel Bisulfate (Plavix) 75 mg PO DAILY [facility] Last Admin: 05/03/19 09:36 Dose: 75 mg Famotidine (Pepcid) 20 mg PO BID [facility] Last Admin: 05/03/19 09:36 Dose: 20 mg Amiodarone HCl 450 mg/ (Dextrose/Water) 259 mls @ 0 mls/hr IVPB INF [facility]; Protocol Lisinopril (Zestril) 10 mg PO BID [facility] Last Admin: 05/03/19 09:37 Dose: 10 mg Ondansetron HCl (Zofran Odt) 4 mg PO Q6H PRN PRN Reason: Nausea/Vomiting Ondansetron HCl (Zofran) 4 mg IVP Q6H PRN PRN Reason: Nausea/Vomiting Sodium Chloride (Flush - Normal Saline) 10 ml IVF Q12HR [facility] Last Admin: 05/03/19 09:37 Dose: 10 ml Sodium Chloride (Flush - Normal Saline) 10 ml IVF PRN PRN PRN Reason: Saline Flush Vital Signs & Weight: Vital Signs Temp Pulse Resp BP BP BP BP 05/03/19 15:00 98.1 F 67 18 137/76 05/03/19 14:30 142/68 H 135/81 05/03/19 11:01 97.6 F 78 18 166/89 H 05/03/19 07:20 97.6 F 66 16 142/81 H Pulse Ox 05/03/19 15:00 95 05/03/19 14:30 05/03/19 11:01 99 05/03/19 07:20 97 Weight 218 lb 2 oz - Physical Exam General: alert & oriented x3 Neck: supple neck Cardiac: regular rate and rhythm, S1/S2 Lungs: decreased breath sounds - Labs Result Diagrams: 05/01/19 08:12 05/01/19 08:12 Troponin/CKMB CK-MB (CK-2) 3.4 ng/mL (0-6.6) 05/01/19 00:24 Troponin I 23.253 ng/mL (< 0.028) H* 05/01/19 00:24 - Telemetry Sinus rhythms and dysrhythmias: other (V paced) - Assessment/Plan Assessment/Plan: 1. S/p VT episodes with 2 discharge from AICD - stable with Amiodarone, which managed by EP 2. Ischemic CMY with hx of BiV AICD placement 3. Severe 2V CAD - on ASA, Coreg, statin, and Lisinopril; cont. medical tx only 4. HTN - stable 5. DM type 2 - managed by PCP 6. COPD - stable with RA 7. hx of CVA 8. Non-compliance MAR reviewed * From Cardiac standpoint, the pt is stable to tx to rehab/SNF * At discharge, Amiodarone will be ordered: 400mg TID for 2wks, 400mg BID for 2wks, 200mg TID for 2wks, 200mg BID for 2wks, and 200mg qd Pt. seen and eval. by me. I agree with the A/P by the COMPLIANCE NURSE. Chest clear. RRR. gjmays
--- NOTE | 2019-05-03 21:04 | PDOC.HOSPP ---
- Subjective Encounter Date: 05/03/19 Encounter Time: 21:03 Subjective: CC: ICD fire Subjective Patient in bed, no chest pain/shortness of breath, no ICD shocks - Objective Vital Signs & Weight: Vital Signs (12 hours) Temp Pulse Resp BP BP BP Pulse Ox 05/03/19 15:37 98.0 F 69 20 130/73 97 05/03/19 15:00 98.1 F 67 18 137/76 95 05/03/19 14:30 142/68 H 135/81 05/03/19 11:01 97.6 F 78 18 166/89 H 99 Weight Weight 218 lb 2 oz Most Recent Monitor Data Heart Rate from ECG 80 NIBP 131/77 NIBP BP-Mean 95 Respiration from ECG 16 SpO2 93 I&O: 05/02/19 05/03/19 05/04/19 06:59 06:59 06:59 Intake Total 462.5 1700 1070 Output Total 30 Balance 432.5 1700 1070 Result Diagrams: 05/01/19 08:12 05/01/19 08:12 Additional Labs: Accuchecks 05/03/19 05/03/19 05/03/19 20:12 16:35 10:30 POC Glucose 124 H 125 H 128 H 05/03/19 05/02/19 05:47 22:07 POC Glucose 109 114 H Hospitalist ROS - Medication Medications: Active Medications Generic Name Dose Route Start Last Admin Trade Name Freq PRN Reason Stop Dose Admin Amiodarone HCl 400 mg 05/01/19 15:00 05/03/19 14:58 Cordarone PO 400 mg TID SRNIIVAS Administration Aspirin 81 mg 05/01/19 09:00 05/03/19 09:36 Ecotrin PO 81 mg DAILY SRINIV[facility] Administration Atorvastatin Calcium 40 mg 05/01/19 21:00 05/02/19 20:58 Lipitor PO 40 mg HS [facility]INIVAS Administration Carvedilol 12.5 mg 05/01/19 09:00 05/03/19 09:36 Coreg PO 12.5 mg BID [facility]INIV[facility] Administration Clopidogrel Bisulfate 75 mg 05/01/19 09:00 05/03/19 09:36 Plavix PO 75 mg DAILY [facility]IV[facility] Administration Famotidine 20 mg 05/01/19 09:00 05/03/19 09:36 Pepcid PO 20 mg BID SR[facility]IV[facility] Administration Lisinopril 10 mg 05/01/19 09:00 05/03/19 09:37 Zestril PO 10 mg BID SRINIV[facility] Administration Sodium Chloride 10 ml 05/01/19 09:00 05/03/19 09:37 Flush - Normal Saline IVF 10 ml Q12HR SRINIVAS Administration - Exam General Appearance: NAD, awake alert Eye: PERRL, anicteric sclera ENT: normocephalic atraumatic, moist mucosa Neck: supple, symmetric, no JVD Heart: RRR, no murmur, no gallops, no rubs Respiratory: CTAB, no wheezes, no rales, no ronchi Gastrointestinal: soft, non-tender, non-distended, normal bowel sounds Extremities: no cyanosis, no clubbing, no edema Skin: no lesions, no rashes Neurological: cranial nerve grossly intact, normal sensation to touch, no weakness, no focal deficits Musculoskeletal: normal tone, normal strength, no muscle wasting Psychiatric: normal affect, normal behavior, A&O x 3 Hosp A/P - Plan Patient is a 53 year old male being treated for: # ventricular fibrillation w/ ICD shocks - appreciate cardiology assistance with ICD setting management and antiarrhythmics, patient on amiodarone currently , lidocaine previously stopped - EP consulted, AICID functioning with appropriate VF shock, amiodarone to be converted to PO, VF ablation a possibility in the future - monitor Mg/K, replete as necessary, TSH wnl this admission # NSTEMI - continue medical management, appreciate cardiology assistance # ischemic cardiomyopathy with ED of 15-20%, continue PAULO inhibitor, compensated # medication noncompliance - was previously to have management help with home health which had been set up, disposition pending, can hopefully be compliant once has home health assistance DVT/GI ppx Code status - full, daughter is surrogate decision maker Disposition - PT/OT/case management evaluation underway for SNF referral, [facility] with some parts still pending, patient may improve enough to not need SNF as well
[2019-05-03] MEDS: Atorvastatin Calcium 40 MG TAB PO SCH (21:25)
[2019-05-04 07:33] VITALS: BMI 30.5
[2019-05-04] MEDS: Carvedilol 6.25 MG TAB PO SCH ×2 (09:25→21:22)
[2019-05-04] MEDS: Lisinopril 10 MG TAB PO SCH ×2 (09:25→21:22)
[2019-05-04] MEDS: Aspirin 81 mg Enteric Coated Tablet PO SCH (09:25)
[2019-05-04] MEDS: Clopidogrel Bisulfate 75 MG TAB PO SCH (09:25)
[2019-05-04] MEDS: Amiodarone 200 MG TAB PO SCH ×3 (09:25→21:23)
[2019-05-04] MEDS: Famotidine 20 MG TAB PO SCH ×2 (09:25→21:23)
--- NOTE | 2019-05-04 17:23 | PDOC.CPN ---
- Subjective Date: 05/04/19 Time: 17:26 Interval history: The pt seen and examined. No overnight events. No Cardiac complaints. - Objective Allergies/Adverse Reactions: Allergies Allergy/AdvReac Type Severity Reaction Status Date / Time No Known Drug Allergies Allergy Verified 05/01/19 06:52 Visit Medications: Current Medications Acetaminophen (Tylenol) 1,000 mg PO Q6H PRN PRN Reason: Mild Pain (1-3) Amiodarone HCl (Cordarone) 400 mg PO TID [facility] Last Admin: 05/04/19 15:40 Dose: 400 mg Aspirin (Ecotrin) 81 mg PO DAILY [facility] Last Admin: 05/04/19 09:25 Dose: 81 mg Atorvastatin Calcium (Lipitor) 40 mg PO HS [facility] Last Admin: 05/03/19 21:25 Dose: 40 mg Carvedilol (Coreg) 12.5 mg PO BID [facility] Last Admin: 05/04/19 09:25 Dose: 12.5 mg Clopidogrel Bisulfate (Plavix) 75 mg PO DAILY [facility] Last Admin: 05/04/19 09:25 Dose: 75 mg Famotidine (Pepcid) 20 mg PO BID [facility] Last Admin: 05/04/19 09:25 Dose: 20 mg Amiodarone HCl 450 mg/ (Dextrose/Water) 259 mls @ 0 mls/hr IVPB INF [facility]; Protocol Lisinopril (Zestril) 10 mg PO BID [facility] Last Admin: 05/04/19 09:25 Dose: 10 mg Ondansetron HCl (Zofran Odt) 4 mg PO Q6H PRN PRN Reason: Nausea/Vomiting Ondansetron HCl (Zofran) 4 mg IVP Q6H PRN PRN Reason: Nausea/Vomiting Sodium Chloride (Flush - Normal Saline) 10 ml IVF Q12HR [facility] Last Admin: 05/04/19 09:26 Dose: 10 ml Sodium Chloride (Flush - Normal Saline) 10 ml IVF PRN PRN PRN Reason: Saline Flush Vital Signs & Weight: Vital Signs Temp Pulse Resp BP BP Pulse Ox 05/04/19 15:29 98.0 F 67 15 174/88 H 97 05/04/19 12:08 97.5 F L 65 14 139/79 96 05/04/19 07:30 97.6 F 65 16 146/78 H 98 05/04/19 05:30 95 Weight 218 lb 6 oz - Physical Exam General: alert & oriented x3 Neck: supple neck Cardiac: regular rate and rhythm, S1/S2 Lungs: decreased breath sounds - Labs Result Diagrams: 05/01/19 08:12 05/01/19 08:12 Troponin/CKMB CK-MB (CK-2) 3.4 ng/mL (0-6.6) 05/01/19 00:24 Troponin I 23.253 ng/mL (< 0.028) H* 05/01/19 00:24 - Telemetry Sinus rhythms and dysrhythmias: other (Vpaced) - Assessment/Plan Assessment/Plan: 1. S/p VT episodes with 2 discharge from AICD - stable with Amiodarone, which managed by EP 2. Ischemic CMY with hx of BiV AICD placement 3. Severe 2V CAD - on ASA, Coreg, statin, and Lisinopril; cont. medical tx only 4. HTN - stable 5. DM type 2 - managed by PCP 6. COPD - stable with RA 7. hx of CVA 8. Non-compliance MAR reviewed * From Cardiac standpoint, the pt is stable to tx to rehab/SNF * At discharge, Amiodarone will be ordered: 400mg TID for 2wks, 400mg BID for 2wks, 200mg TID for 2wks, 200mg BID for 2wks, and 200mg qd * Dr Mohan' pt
--- NOTE | 2019-05-04 17:29 | PDOC.HOSPP ---
- Subjective Subjective: Seen and examined. Sitting upright in bed in no apparent distress. Breathing well on room air. Denies chest pain. No acute overnight events or other symptoms. Pending transferred to fdc in [place]. - Objective Vital Signs & Weight: Vital Signs (12 hours) Temp Pulse Resp BP BP Pulse Ox 05/04/19 15:29 98.0 F 67 15 174/88 H 97 05/04/19 12:08 97.5 F L 65 14 139/79 96 05/04/19 07:30 97.6 F 65 16 146/78 H 98 05/04/19 05:30 95 Weight Weight 218 lb 6 oz Most Recent Monitor Data Heart Rate from ECG 80 NIBP 131/77 NIBP BP-Mean 95 Respiration from ECG 16 SpO2 93 I&O: 05/03/19 05/04/19 05/05/19 06:59 06:59 06:59 Intake Total 1700 1310 Balance 1700 1310 Result Diagrams: 05/01/19 08:12 05/01/19 08:12 Additional Labs: Accuchecks 05/04/19 05/04/19 05/04/19 16:37 10:37 05:24 POC Glucose 130 H 134 H 108 05/03/19 20:12 POC Glucose 124 H Radiology Reviewed by me: Yes Hospitalist ROS - Review of Systems All other systems reviewed; all pertinent +/- noted in HPI/Subj - Medication Medications: Active Medications Generic Name Dose Route Start Last Admin Trade Name Freq PRN Reason Stop Dose Admin Amiodarone HCl 400 mg 05/01/19 15:00 05/04/19 15:40 Cordarone PO 400 mg TID [facility]INIV[facility] Administration Aspirin 81 mg 05/01/19 09:00 05/04/19 09:25 Ecotrin PO 81 mg DAILY [facility] Administration Atorvastatin Calcium 40 mg 05/01/19 21:00 05/03/19 21:25 Lipitor PO 40 mg HS [facility]IV[facility] Administration Carvedilol 12.5 mg 05/01/19 09:00 05/04/19 09:25 Coreg PO 12.5 mg BID [facility] Administration Clopidogrel Bisulfate 75 mg 05/01/19 09:00 05/04/19 09:25 Plavix PO 75 mg DAILY [facility] Administration Famotidine 20 mg 05/01/19 09:00 05/04/19 09:25 Pepcid PO 20 mg BID [facility] Administration Lisinopril 10 mg 05/01/19 09:00 05/04/19 09:25 Zestril PO 10 mg BID [facility] Administration Sodium Chloride 10 ml 05/01/19 09:00 05/04/19 09:26 Flush - Normal Saline IVF 10 ml Q12HR [facility] Administration - Exam General Appearance: NAD, awake alert Eye: anicteric sclera ENT: normocephalic atraumatic, moist mucosa Neck: supple, symmetric, no lymphadenopathy Heart: no murmur, no gallops, no rubs Respiratory: CTAB, no wheezes, no rales, no ronchi, normal chest expansion Gastrointestinal: soft, non-tender, non-distended, no guarding, no rigidity Extremities: no edema Skin: no lesions, no rashes Neurological: cranial nerve grossly intact, no weakness, no focal deficits Musculoskeletal: normal strength, no muscle wasting Psychiatric: A&O x 3, flat affect Hosp A/P (1) Ventricular tachyarrhythmia Code(s): I47.2 - VENTRICULAR TACHYCARDIA Status: Resolved (2) NSTEMI (non-ST elevated myocardial infarction) Code(s): I21.4 - NON-ST ELEVATION (NSTEMI) MYOCARDIAL INFARCTION Status: Resolved (3) DM type 2 (diabetes mellitus, type 2) Status: Chronic Qualifiers: Diabetes mellitus longterm insulin use: without longterm use (4) H/O: CVA (cerebrovascular accident) Code(s): Z86.73 - PRSNL HX OF TIA (TIA), AND CEREB INFRC W/O RESID DEFICITS Status: Chronic (5) HTN (hypertension) Code(s): I10 - ESSENTIAL (PRIMARY) HYPERTENSION Status: Chronic Qualifiers: Hypertension type: essential hypertension Qualified Code(s): I10 - Essential (primary) hypertension (6) Obesity (BMI 30.0-34.9) Code(s): E66.9 - OBESITY, UNSPECIFIED Status: Chronic (7) Pacemaker malfunction Code(s): T82.111A - BREAKDOWN OF CARDIAC PULSE GENERATOR (BATTERY), INIT Status: Resolved - Plan Plan medical unit with telemetry cardiology consultation, recommendations appreciated electrophysiology consultation, recommendations appreciated patient medically optimize for subacute placement, pending fdc facility in [place] amiodarone taper pacemaker working properly, shocked appropriately per EP continue other home medications as able blood pressure control DVT prophylaxis
[2019-05-04] MEDS: Atorvastatin Calcium 40 MG TAB PO SCH (21:23)
[2019-05-05] MEDS: Amiodarone 200 MG TAB PO SCH ×3 (08:26→21:36)
[2019-05-05] MEDS: Carvedilol 6.25 MG TAB PO SCH ×2 (08:26→21:36)
[2019-05-05] MEDS: Aspirin 81 mg Enteric Coated Tablet PO SCH (08:26)
[2019-05-05] MEDS: Lisinopril 10 MG TAB PO SCH ×2 (08:26→21:37)
[2019-05-05] MEDS: Famotidine 20 MG TAB PO SCH ×2 (08:26→21:37)
[2019-05-05] MEDS: Clopidogrel Bisulfate 75 MG TAB PO SCH (08:26)
--- NOTE | 2019-05-05 11:22 | PDOC.CPN ---
- Subjective Date: 05/05/19 Time: 11:24 Interval history: The pt seen and examined. No overnight events. No cardiac complaints. - Objective Allergies/Adverse Reactions: Allergies Allergy/AdvReac Type Severity Reaction Status Date / Time No Known Drug Allergies Allergy Verified 05/01/19 06:52 Visit Medications: Current Medications Acetaminophen (Tylenol) 1,000 mg PO Q6H PRN PRN Reason: Mild Pain (1-3) Amiodarone HCl (Cordarone) 400 mg PO TID [facility] Last Admin: 05/05/19 08:26 Dose: 400 mg Aspirin (Ecotrin) 81 mg PO DAILY [facility] Last Admin: 05/05/19 08:26 Dose: 81 mg Atorvastatin Calcium (Lipitor) 40 mg PO HS [facility] Last Admin: 05/04/19 21:23 Dose: 40 mg Carvedilol (Coreg) 12.5 mg PO BID [facility] Last Admin: 05/05/19 08:26 Dose: 12.5 mg Clopidogrel Bisulfate (Plavix) 75 mg PO DAILY [facility] Last Admin: 05/05/19 08:26 Dose: 75 mg Famotidine (Pepcid) 20 mg PO BID [facility] Last Admin: 05/05/19 08:26 Dose: 20 mg Amiodarone HCl 450 mg/ (Dextrose/Water) 259 mls @ 0 mls/hr IVPB INF [facility]; Protocol Lisinopril (Zestril) 10 mg PO BID [facility] Last Admin: 05/05/19 08:26 Dose: 10 mg Ondansetron HCl (Zofran Odt) 4 mg PO Q6H PRN PRN Reason: Nausea/Vomiting Ondansetron HCl (Zofran) 4 mg IVP Q6H PRN PRN Reason: Nausea/Vomiting Sodium Chloride (Flush - Normal Saline) 10 ml IVF Q12HR [facility] Last Admin: 05/05/19 10:30 Dose: 10 ml Sodium Chloride (Flush - Normal Saline) 10 ml IVF PRN PRN PRN Reason: Saline Flush Vital Signs & Weight: Vital Signs Temp Pulse Resp BP BP Pulse Ox 05/05/19 11:15 97.5 F L 60 16 114/58 L 96 05/05/19 08:26 131/63 05/05/19 07:29 97.8 F 67 16 136/81 97 05/05/19 03:20 97.4 F L 62 22 H 120/58 L 99 Weight 218 lb 3.2 oz - Physical Exam General: alert & oriented x3 Neck: supple neck Cardiac: regular rate and rhythm, S1/S2 Lungs: clear to auscultation - Labs Result Diagrams: 05/01/19 08:12 05/01/19 08:12 Troponin/CKMB CK-MB (CK-2) 3.4 ng/mL (0-6.6) 05/01/19 00:24 Troponin I 23.253 ng/mL (< 0.028) H* 05/01/19 00:24 - Telemetry Sinus rhythms and dysrhythmias: other (AV paced) - Assessment/Plan Assessment/Plan: 1. S/p VT episodes with 2 discharge from AICD - stable with Amiodarone, which managed by EP 2. Ischemic CMY with hx of BiV AICD placement 3. Severe 2V CAD - on ASA, Coreg, statin, and Lisinopril; cont. medical tx only 4. HTN - stable 5. DM type 2 - managed by PCP 6. COPD - stable with RA 7. hx of CVA 8. Non-compliance MAR reviewed * From Cardiac standpoint, the pt is stable to tx to rehab/SNF * At discharge, Amiodarone will be ordered: 400mg BID for 1wks, 200mg BID for 2wks, and 200mg qd (per Dr Carmona; Thank you for your input!) * Dr Mohan' pt
--- NOTE | 2019-05-05 11:29 | PRG ---
DATE OF SERVICE: 05/05/2019 SUBJECTIVE: Mr. Villanueva seems to be doing fair over the weekend. No new symptomatic arrhythmias noted. Short 5- to 7-beat nonsustained VT seen yesterday. OBJECTIVE DATA: VITAL SIGNS: Blood pressure 136/81, heart rate 67, respiratory rate 16, and temperature 97.8 degrees Fahrenheit. GENERAL: Alert and oriented man, in no apparent distress. NECK: Supple. Jugular veins not distended. CHEST: Coarse. No crackles. HEART: Sounds are regular to rate and rhythm. No murmur or gallop. ABDOMEN: Benign. Bowel sounds are positive. EXTREMITIES: Lower extremities without edema, clubbing, or cyanosis. DATABASE: Telemetry strips reviewed, revealing sinus rhythm, again 5 to 7 beats nonsustained wide-complex rhythm only noted yesterday. Isolated occasional PVCs are seen. QTc is not markedly prolonged. ASSESSMENT AND PLAN: Mr. Villanueva is a 53-year-old man with history of congestive heart failure and ischemic cardiomyopathy, severely reduced LVEF 15% to 20%, noncompliance, who had recurrent ventricular arrhythmias. He was here after amiodarone loading, currently doing well. Heart failure symptoms resolved and no further sustained ventricular arrhythmias. Still on high-dose amiodarone, which should be reduced on discharge. Discussed with Dr. Rhodes' nurse practitioner, as well as the hospitalist Dr. Peace. We will see him back in about 6 weeks for followup. Job ID: [id number]
--- NOTE | 2019-05-05 13:38 | PDOC.HOSPP ---
- Subjective Encounter Date: 05/05/19 Encounter Time: 08:35 Subjective: 53 y/o male with ischemic cardiomyopathy with EF 15-20 s/p AICD, Chronic systolic heart failure, and non compliance amongst other admitted recurrent AICD discharges followed by lightheadedness and SOB. Found to have ventricular tachycardia on interrogation of AICD and was started on amiodarone infusion. Feeling better. No new problem - Objective Vital Signs & Weight: Vital Signs (12 hours) Temp Pulse Pulse Pulse Resp BP BP 05/05/19 11:15 97.5 F L 60 16 05/05/19 09:50 92 63 153/87 H 05/05/19 08:26 131/63 05/05/19 07:29 97.8 F 67 16 05/05/19 03:20 97.4 F L 62 22 H BP BP Pulse Ox 05/05/19 11:15 114/58 L 96 05/05/19 09:50 164/85 H 05/05/19 08:26 05/05/19 07:29 136/81 97 05/05/19 03:20 120/58 L 99 Weight Weight 218 lb 3.2 oz Most Recent Monitor Data Heart Rate from ECG 80 NIBP 131/77 NIBP BP-Mean 95 Respiration from ECG 16 SpO2 93 I&O: 05/04/19 05/05/19 05/06/19 06:59 06:59 06:59 Intake Total 1310 1900 Balance 1310 1900 Result Diagrams: 05/05/19 14:28 05/05/19 14:28 Additional Labs: Accuchecks 05/05/19 05/05/19 05/04/19 10:34 05:27 20:32 POC Glucose 193 H 115 H 124 H 05/04/19 16:37 POC Glucose 130 H Hospitalist ROS - Medication Medications: Active Medications Generic Name Dose Route Start Last Admin Trade Name Freq PRN Reason Stop Dose Admin Amiodarone HCl 400 mg 05/01/19 15:00 05/05/19 08:26 Cordarone PO 400 mg TID SRINIVAS Administration Aspirin 81 mg 05/01/19 09:00 05/05/19 08:26 Ecotrin PO 81 mg DAILY [facility] Administration Atorvastatin Calcium 40 mg 05/01/19 21:00 05/04/19 21:23 Lipitor PO 40 mg HS [facility] Administration Carvedilol 12.5 mg 05/01/19 09:00 05/05/19 08:26 Coreg PO 12.5 mg BID [facility] Administration Clopidogrel Bisulfate 75 mg 05/01/19 09:00 05/05/19 08:26 Plavix PO 75 mg DAILY [facility] Administration Famotidine 20 mg 05/01/19 09:00 05/05/19 08:26 Pepcid PO 20 mg BID [facility] Administration Lisinopril 10 mg 05/01/19 09:00 05/05/19 08:26 Zestril PO 10 mg BID [facility] Administration Sodium Chloride 10 ml 05/01/19 09:00 05/05/19 10:30 Flush - Normal Saline IVF 10 ml Q12HR [facility] Administration - Exam General Appearance: awake alert Eye: PERRL, anicteric sclera ENT: normocephalic atraumatic Neck: supple, no JVD Heart: RRR Respiratory: no wheezes, no rales, no ronchi, normal chest expansion Gastrointestinal: soft, non-tender, non-distended, normal bowel sounds Extremities: no cyanosis, no edema Neurological: cranial nerve grossly intact, normal sensation to touch, no weakness, no focal deficits Psychiatric: normal affect, A&O x 3 Hosp A/P (1) Ventricular tachyarrhythmia Code(s): I47.2 - VENTRICULAR TACHYCARDIA Status: Resolved (2) Non-compliance with treatment Code(s): Z91.19 - PATIENT'S NONCOMPLIANCE W OTH MEDICAL TREATMENT AND REGIMEN Status: Acute (3) Ischemic cardiomyopathy Code(s): I25.5 - ISCHEMIC CARDIOMYOPATHY Status: Acute (4) Chronic systolic (congestive) heart failure Code(s): I50.22 - CHRONIC SYSTOLIC (CONGESTIVE) HEART FAILURE Status: Acute (5) DM type 2 (diabetes mellitus, type 2) Status: Chronic Qualifiers: Diabetes mellitus watermaster insulin use: without usp use (6) HTN (hypertension) Code(s): I10 - ESSENTIAL (PRIMARY) HYPERTENSION Status: Chronic Qualifiers: Hypertension type: essential hypertension Qualified Code(s): I10 - Essential (primary) hypertension (7) CAD (coronary artery disease) Code(s): I25.10 - ATHSCL HEART DISEASE OF [place] CORONARY ARTERY W/O ANG PCTRS Status: Acute (8) Elevated troponin Code(s): R79.89 - OTHER SPECIFIED ABNORMAL FINDINGS OF BLOOD CHEMISTRY Status : Acute (9) Type 2 AMI (acute myocardial infarction) Code(s): I21.A1 - MYOCARDIAL INFARCTION TYPE 2 Status: Acute - Plan Continue amiodarone infusion. For transition to oral on discharge COntinue other treatment. Medical management of CAD due to non compliance Get repeat magn, CBC and BMP. Awaiting placement
[2019-05-05 15:00] LABS: #Basophils 0.1 thou/uL (0.0-0.2); #Eosinphils 0.2 thou/uL (0.0-0.7); #Lymphocytes 1.9 thou/uL (1.20-3.40); #Monocytes 0.3 thou/uL (0.11-0.59); #Neutrophils 3.5 thou/uL (1.40-6.50); %Basophils 1.3 % (0.0-1.0); %Eosinophils 3.9 % (0.0-10.0); %Lymphocytes 31.3 % (21.0-51.0); %Monocytes 5.3 % (0.0-10.0); %Neutrophils 58.2 % (42.0-75.0); Hemoglobin 13.9 g/dL (14.0-18.0); Mean Corpuscular HGB CONC 34.1 g/dL (32.0-36.0); Mean Corpuscular Hemoglobin 33.4 pg (27.0-31.0); Mean Platelet Volume 8.9 fL (7.4-10.4); Platelet Count 246 thou/uL (130-400); RBC Distribution Width 11.5 % (11.5-14.5); Red Blood Cell (RBC) Count 4.17 mill/uL (4.70-6.10)
[2019-05-05 15:17] LABS: Anion Gap 12 mmol/L (10-20); BUN (Urea Nitrogen) 12 mg/dL (8.4-25.7); Calc. Creatinine Clearance 131 mL/min (70-130); Calcium 9.3 mg/dL (7.8-10.44); Carbon Dioxide 25 mmol/L (22-29); Chloride 106 mmol/L (98-107); Estimated GFR-MDRD 88; Glucose 126 mg/dL (70-105); Magnesium 2.2 mg/dL (1.6-2.6); Potassium 3.6 mmol/L (3.5-5.1); Sodium 139 mmol/L (136-145)
[2019-05-05] MEDS ORDERED: Atorvastatin Calcium 20 MG TAB PO SCH (21:30)
[2019-05-05] MEDS: Atorvastatin Calcium 40 MG TAB PO SCH (22:04)
[2019-05-06] MEDS: Carvedilol 6.25 MG TAB PO SCH ×2 (08:43→20:18)
[2019-05-06] MEDS: Aspirin 81 mg Enteric Coated Tablet PO SCH (08:44)
[2019-05-06] MEDS: Clopidogrel Bisulfate 75 MG TAB PO SCH (08:44)
[2019-05-06] MEDS: Amiodarone 200 MG TAB PO SCH ×3 (08:44→20:17)
[2019-05-06] MEDS: Famotidine 20 MG TAB PO SCH ×2 (08:44→20:18)
[2019-05-06] MEDS: Lisinopril 10 MG TAB PO SCH ×2 (08:44→20:18)
--- NOTE | 2019-05-06 13:16 | PDOC.CPN ---
- Subjective Date: 05/06/19 Time: 13:17 Interval history: The pt seen and examined. No overnight events. No cardiac complaints. - Objective Allergies/Adverse Reactions: Allergies Allergy/AdvReac Type Severity Reaction Status Date / Time No Known Drug Allergies Allergy Verified 05/01/19 06:52 Visit Medications: Current Medications Acetaminophen (Tylenol) 1,000 mg PO Q6H PRN PRN Reason: Mild Pain (1-3) Amiodarone HCl (Cordarone) 400 mg PO TID [facility] Last Admin: 05/06/19 08:44 Dose: 400 mg Aspirin (Ecotrin) 81 mg PO DAILY [facility] Last Admin: 05/06/19 08:44 Dose: 81 mg Atorvastatin Calcium (Lipitor) 40 mg PO HS [facility] Carvedilol (Coreg) 12.5 mg PO BID [facility] Last Admin: 05/06/19 08:43 Dose: 12.5 mg Clopidogrel Bisulfate (Plavix) 75 mg PO DAILY [facility] Last Admin: 05/06/19 08:44 Dose: 75 mg Famotidine (Pepcid) 20 mg PO BID [facility] Last Admin: 05/06/19 08:44 Dose: 20 mg Amiodarone HCl 450 mg/ (Dextrose/Water) 259 mls @ 0 mls/hr IVPB INF [facility]; Protocol Lisinopril (Zestril) 10 mg PO BID [facility] Last Admin: 05/06/19 08:44 Dose: 10 mg Ondansetron HCl (Zofran Odt) 4 mg PO Q6H PRN PRN Reason: Nausea/Vomiting Ondansetron HCl (Zofran) 4 mg IVP Q6H PRN PRN Reason: Nausea/Vomiting Sodium Chloride (Flush - Normal Saline) 10 ml IVF Q12HR [facility] Last Admin: 05/06/19 08:44 Dose: 10 ml Sodium Chloride (Flush - Normal Saline) 10 ml IVF PRN PRN PRN Reason: Saline Flush Vital Signs & Weight: Vital Signs Temp Pulse Resp BP BP BP Pulse Ox 05/06/19 11:30 97.6 F 60 16 167/90 H 99 05/06/19 08:44 131/63 05/06/19 08:43 131/63 05/06/19 07:09 97.8 F 61 16 111/56 L 96 05/06/19 03:23 98.0 F 60 20 135/79 92 L Weight 219 lb - Physical Exam General: alert & oriented x3 HEENT: mucus membranes moist Neck: supple neck Cardiac: regular rate and rhythm, S1/S2 Lungs: clear to auscultation Neuro: cranial nerve 2-12 intact Abdomen: unremarkable Extremities: no cyanosis Skin: clear Musculoskeletal: decreased range of motion - Labs Result Diagrams: 05/05/19 14:28 05/05/19 14:28 Troponin/CKMB CK-MB (CK-2) 3.4 ng/mL (0-6.6) 05/01/19 00:24 Troponin I 23.253 ng/mL (< 0.028) H* 05/01/19 00:24 - Telemetry Sinus rhythms and dysrhythmias: other (V paced) - Assessment/Plan Assessment/Plan: 1. S/p VT episodes with 2 discharge from AICD - stable with Amiodarone, which managed by EP 2. Ischemic CMY with hx of BiV AICD placement 3. Severe 2V CAD - on ASA, Coreg, statin, and Lisinopril; cont. medical tx only 4. HTN - stable 5. DM type 2 - managed by PCP 6. COPD - stable with RA 7. hx of CVA 8. Non-compliance MAR reviewed * From Cardiac standpoint, the pt is stable to tx to rehab/SNF * At discharge, Amiodarone will be ordered: 400mg BID for 1wks, 200mg BID for 2wks, and 200mg qd (per Dr Carmona; Thank you for your input!) * Dr Mohan' pt
--- NOTE | 2019-05-06 14:24 | PDOC.HOSPP ---
- Subjective Encounter Date: 05/06/19 Encounter Time: 10:22 Subjective: 53 y/o male with ischemic cardiomyopathy with EF 15-20 s/p AICD, Chronic systolic heart failure, and non compliance amongst other admitted recurrent AICD discharges followed by lightheadedness and SOB. Found to have ventricular tachycardia on interrogation of AICD and was started on amiodarone infusion. No new problem. Awaiting placement. - Objective Vital Signs & Weight: Vital Signs (12 hours) Temp Pulse Resp BP BP BP Pulse Ox 05/06/19 11:30 97.6 F 60 16 167/90 H 99 05/06/19 08:44 131/63 05/06/19 08:43 131/63 05/06/19 07:09 97.8 F 61 16 111/56 L 96 05/06/19 03:23 98.0 F 60 20 135/79 92 L Weight Weight 219 lb Most Recent Monitor Data Heart Rate from ECG 80 NIBP 131/77 NIBP BP-Mean 95 Respiration from ECG 16 SpO2 93 I&O: 05/05/19 05/06/19 05/07/19 06:59 06:59 06:59 Intake Total 1900 1450 Balance 1900 1450 Result Diagrams: 05/05/19 14:28 05/05/19 14:28 Additional Labs: Accuchecks 05/06/19 05/06/19 05/05/19 10:33 05:21 20:14 POC Glucose 111 H 118 H 107 05/05/19 16:50 POC Glucose 124 H Hospitalist ROS - Medication Medications: Active Medications Generic Name Dose Route Start Last Admin Trade Name Freq PRN Reason Stop Dose Admin Amiodarone HCl 400 mg 05/01/19 15:00 05/06/19 08:44 Cordarone PO 400 mg TID [facility] Administration Aspirin 81 mg 05/01/19 09:00 05/06/19 08:44 Ecotrin PO 81 mg DAILY [facility] Administration Carvedilol 12.5 mg 05/01/19 09:00 05/06/19 08:43 Coreg PO 12.5 mg BID [facility] Administration Clopidogrel Bisulfate 75 mg 05/01/19 09:00 05/06/19 08:44 Plavix PO 75 mg DAILY [facility] Administration Famotidine 20 mg 05/01/19 09:00 05/06/19 08:44 Pepcid PO 20 mg BID [facility] Administration Lisinopril 10 mg 05/01/19 09:00 05/06/19 08:44 Zestril PO 10 mg BID [facility] Administration Sodium Chloride 10 ml 05/01/19 09:00 05/06/19 08:44 Flush - Normal Saline IVF 10 ml Q12HR [facility] Administration - Exam General Appearance: awake alert Eye: anicteric sclera ENT: normocephalic atraumatic, moist mucosa Neck: symmetric, no JVD Heart: RRR Respiratory: no wheezes, no rales, no ronchi, normal chest expansion, no tachypnea Gastrointestinal: soft, non-tender, non-distended, normal bowel sounds Extremities: no cyanosis, no edema Neurological: cranial nerve grossly intact, no focal deficits Psychiatric: normal affect, A&O x 3 Hosp A/P (1) Ventricular tachyarrhythmia Code(s): I47.2 - VENTRICULAR TACHYCARDIA Status: Resolved (2) Non-compliance with treatment Code(s): Z91.19 - PATIENT'S NONCOMPLIANCE W OTH MEDICAL TREATMENT AND REGIMEN Status: Acute (3) Ischemic cardiomyopathy Code(s): I25.5 - ISCHEMIC CARDIOMYOPATHY Status: Acute (4) Chronic systolic (congestive) heart failure Code(s): I50.22 - CHRONIC SYSTOLIC (CONGESTIVE) HEART FAILURE Status: Acute (5) DM type 2 (diabetes mellitus, type 2) Status: Chronic Qualifiers: Diabetes mellitus buttermaker insulin use: without senior living use (6) HTN (hypertension) Code(s): I10 - ESSENTIAL (PRIMARY) HYPERTENSION Status: Chronic Qualifiers: Hypertension type: essential hypertension Qualified Code(s): I10 - Essential (primary) hypertension (7) CAD (coronary artery disease) Code(s): I25.10 - ATHSCL HEART DISEASE OF [place] CORONARY ARTERY W/O ANG PCTRS Status: Acute (8) Elevated troponin Code(s): R79.89 - OTHER SPECIFIED ABNORMAL FINDINGS OF BLOOD CHEMISTRY Status : Acute (9) Type 2 AMI (acute myocardial infarction) Code(s): I21.A1 - MYOCARDIAL INFARCTION TYPE 2 Status: Acute - Plan Continue amiodarone infusion. For transition to oral on discharge Awaiting placement
[2019-05-06] MEDS ORDERED: Atorvastatin Calcium 20 MG TAB PO SCH (21:00)
[2019-05-07] MEDS: Amiodarone 200 MG TAB PO SCH ×2 (09:41→15:17)
[2019-05-07] MEDS: Carvedilol 6.25 MG TAB PO SCH (09:41)
[2019-05-07] MEDS: Aspirin 81 mg Enteric Coated Tablet PO SCH (09:41)
[2019-05-07] MEDS: Lisinopril 10 MG TAB PO SCH (09:42)
[2019-05-07] MEDS: Famotidine 20 MG TAB PO SCH (09:42)
[2019-05-07] MEDS: Clopidogrel Bisulfate 75 MG TAB PO SCH (09:42)
--- NOTE | 2019-05-07 10:43 | PDOC.CPN ---
- Subjective Date: 05/07/19 Time: 10:43 Interval history: The pt seen and examined. No overnight events. No cardiac complaints. - Objective Allergies/Adverse Reactions: Allergies Allergy/AdvReac Type Severity Reaction Status Date / Time No Known Drug Allergies Allergy Verified 05/01/19 06:52 Visit Medications: Current Medications Acetaminophen (Tylenol) 1,000 mg PO Q6H PRN PRN Reason: Mild Pain (1-3) Amiodarone HCl (Cordarone) 400 mg PO TID [facility] Last Admin: 05/07/19 09:41 Dose: 400 mg Aspirin (Ecotrin) 81 mg PO DAILY [facility] Last Admin: 05/07/19 09:41 Dose: 81 mg Atorvastatin Calcium (Lipitor) 40 mg PO HS [facility] Last Admin: 05/06/19 20:18 Dose: 40 mg Carvedilol (Coreg) 12.5 mg PO BID [facility] Last Admin: 05/07/19 09:41 Dose: 12.5 mg Clopidogrel Bisulfate (Plavix) 75 mg PO DAILY [facility] Last Admin: 05/07/19 09:42 Dose: 75 mg Famotidine (Pepcid) 20 mg PO BID [facility] Last Admin: 05/07/19 09:42 Dose: 20 mg Lisinopril (Zestril) 10 mg PO BID [facility] Last Admin: 05/07/19 09:42 Dose: 10 mg Ondansetron HCl (Zofran Odt) 4 mg PO Q6H PRN PRN Reason: Nausea/Vomiting Ondansetron HCl (Zofran) 4 mg IVP Q6H PRN PRN Reason: Nausea/Vomiting Sodium Chloride (Flush - Normal Saline) 10 ml IVF Q12HR [facility] Last Admin: 05/07/19 09:43 Dose: Not Given Sodium Chloride (Flush - Normal Saline) 10 ml IVF PRN PRN PRN Reason: Saline Flush Vital Signs & Weight: Vital Signs Temp Pulse Resp BP BP Pulse Ox 05/07/19 07:53 97.8 F 60 20 165/84 H 98 05/07/19 04:00 98.1 F 60 18 133/82 99 Weight 218 lb - Physical Exam General: alert & oriented x3 HEENT: mucus membranes moist Neck: supple neck Cardiac: regular rate and rhythm, S1/S2 Lungs: clear to auscultation Neuro: cranial nerve 2-12 intact - Labs Result Diagrams: 05/05/19 14:28 05/05/19 14:28 Troponin/CKMB CK-MB (CK-2) 3.4 ng/mL (0-6.6) 05/01/19 00:24 Troponin I 23.253 ng/mL (< 0.028) H* 05/01/19 00:24 - Telemetry Sinus rhythms and dysrhythmias: other (V paced) - Assessment/Plan Assessment/Plan: 1. S/p VT episodes with 2 discharge from AICD - stable with Amiodarone, which managed by EP 2. Ischemic CMY with hx of BiV AICD placement 3. Severe 2V CAD - on ASA, Coreg, statin, and Lisinopril; cont. medical tx only 4. HTN - stable 5. DM type 2 - managed by PCP 6. COPD - stable with RA 7. hx of CVA 8. Non-compliance MAR reviewed * From Cardiac standpoint, the pt is stable to tx to rehab/SNF * At discharge, Amiodarone will be ordered: 400mg BID for 1wks, 200mg BID for 2wks, and 200mg qd (per Dr Carmona; Thank you for your input!) * Cardiology will sign off. * Dr Mohan' pt
[2019-05-07 16:41] VITALS: BP 154/74; TEMP 97.5
== END 2019-05-07 16:35 | DRG 281 ==
LOC: ERS 23:44 → ERHOLD 05-01 02:28 → CCU 05-01 06:07 → OBSVTOIN 05-01 07:00 → 2NO 05-01 15:57
PROVIDERS: ADMIT Family Medicine; ATTEND Internal Medicine
DX: I47.2 Ventricular tachycardia (principal); I21.A1 Myocardial infarction type 2; I50.22 Chronic systolic (congestive) heart failure; Z66 Do not resuscitate; I49.01 Ventricular fibrillation; I25.5 Ischemic cardiomyopathy; I11.0 Hypertensive heart disease with heart failure; E78.5 Hyperlipidemia, unspecified; E11.9 Type 2 diabetes mellitus without complications; E78.00 Pure hypercholesterolemia, unspecified; I25.10 Atherosclerotic heart disease of native coronary artery without angina pectoris; E66.9 Obesity, unspecified; J44.9 Chronic obstructive pulmonary disease, unspecified; Z86.73 Personal history of transient ischemic attack (TIA), and cerebral infarction without residual deficits; Z95.810 Presence of automatic (implantable) cardiac defibrillator; Z79.82 Long term (current) use of aspirin; Z79.01 Long term (current) use of anticoagulants; Z79.899 Other long term (current) drug therapy; Z87.891 Personal history of nicotine dependence; Z91.14 Patient's other noncompliance with medication regimen; Z68.30 Body mass index [BMI] 30.0-30.9, adult
CPT/HCPCS: 36415; 36416; 71045; 80048; 80053; 82553; 83735; 84443; 84484; 85025; 96365; 96376; 99292; J0282; J2001

== ENCOUNTER 2019-07-29 09:22 | Outpatient (CLI) | payer MEDICARE ==
--- NOTE | 2019-07-29 10:20 | CT ---
CT chest noncontrast low-dose screening HISTORY: Tobacco abuse. Smoking. FINDINGS: Lungs are slightly hyperinflated with scattered areas of mild parenchymal scarring and inte rstitial thickening. Abutting the visceral pleura over the medial aspect of the left diaphragm apex is an ill-defined, groundglass nodule that is 0.8 cm greatest diameter and contains some internal jany cification calcified granuloma at the right apex is consistent with healed granulomatous disease. No pleural fluid or pneumothorax. Lack of contrast limits evaluation of the soft tissues. Nonspecific lymph nodes are scattered about t he mediastinum. There is calcification in the coronary arteries and other arterial structures. Inferior most images show hyperdense stones in the gallbladder lumen. There is chronic appearing mild compression of the superior endplate of a lower thoracic vertebral body on the sagittal images. IMPRESSION: Groundglass partially calcified 0.8 cm nodule at the left base is benign. No aggressive l esions are evident. Lung RADS category 2. Benign. Suggest routine screening. Atherosclerosis. Cholelithiasis.
== END 2019-07-29 09:23 | disposition home or self-care (01) ==
LOC: CT 09:22
PROVIDERS: ATTEND Family Medicine
DX: Z12.2 Encounter for screening for malignant neoplasm of respiratory organs (principal); I50.20 Unspecified systolic (congestive) heart failure; Z87.891 Personal history of nicotine dependence; R91.1 Solitary pulmonary nodule
CPT/HCPCS: G0297

== ENCOUNTER 2020-05-20 21:57 | Inpatient (IN) | payer MEDICARE, MEDICAID ==
--- NOTE | 2020-05-20 23:12 | CT ---
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 Moderate microvascular ischemic changes in the subcortical and dale p white matter along with the basal ganglia. No acute hemorrhage. No midline shift or mass effect. No new acute territorial infarction appreciated. Calvarium is intact. Extensive mucosal thickening left maxillary sinus. Impression: No acute intracranial abnormality.
--- NOTE | 2020-05-20 23:15 | RAD ---
XR Chest 1 View Portable History: Dyspnea Comparison: Radiograph May 01, 2019 Findings: Few peripheral opacities within the right middle lobe and right upper lobe as well as the l ingula. No pneumothorax. The IC/pacer electrode tips are similar. Impression: Few peripheral opacities in the lungs can be seen with Covid-19 pneumonia.
[2020-05-20 23:26] LABS: #Basophils 0.1 thou/uL (0.0-0.2); #Eosinphils 0.3 thou/uL (0.0-0.7); #Lymphocytes 1.6 thou/uL (1.20-3.40); #Monocytes 0.4 thou/uL (0.11-0.59); #Neutrophils 4.6 thou/uL (1.40-6.50); %Basophils 0.8 % (0.0-1.0); %Eosinophils 4.3 % (0.0-10.0); %Monocytes 5.6 % (0.0-10.0); %Neutrophils 66.2 % (42.0-75.0); Hemoglobin 13.3 g/dL (14.0-18.0); Mean Corpuscular Hemoglobin 33.8 pg (27.0-31.0); Mean Corpuscular Volume 99.6 fL (78.0-98.0); Mean Platelet Volume 7.7 fL (7.4-10.4); Platelet Count 286 thou/uL (130-400); RBC Distribution Width 12.3 % (11.5-14.5); Red Blood Cell (RBC) Count 3.93 mill/uL (4.70-6.10)
[2020-05-20 23:45] LABS: ALT (SGPT) 15 U/L (8-55); AST (SGOT) 17 U/L (5-34); Albumin 3.8 g/dL (3.5-5.0); Alkaline Phosphatase 68 U/L (40-110); Anion Gap 16 mmol/L (10-20); BUN (Urea Nitrogen) 13 mg/dL (8.4-25.7); Bilirubin, Total 0.8 mg/dL (0.2-1.2); Calc. Creatinine Clearance 0 mL/min (70-130); Calcium 8.6 mg/dL (7.8-10.44); Carbon Dioxide 23 mmol/L (22-29); Chloride 107 mmol/L (98-107); Globulin 3.8 g/dL (2.4-3.5); Glucose 85 mg/dL (70-105); Potassium 4.1 mmol/L (3.5-5.1); Protein, Total 7.6 g/dL (6.0-8.3); Sodium 142 mmol/L (136-145)
[2020-05-20] MEDS ORDERED: Azithromycin 500 MG VIAL ONE (23:50)
[2020-05-20] MEDS ORDERED: cefTRIAXone\\ROCEPHIN 2 GM VIAL ONE (23:50)
[2020-05-21 00:45] LABS: SARS-CoV-2 NAA Rapid Test DETECTED (NotDetected)
--- NOTE | 2020-05-21 01:14 | PDOC.BPN ---
- Brief Progress Note [id number] dictated
--- NOTE | 2020-05-21 01:59 | HP ---
CHIEF COMPLAINT: Stroke-like symptoms. HISTORY OF PRESENT ILLNESS: Mr. Villanueva is a 54-year-old male with past medical history of a CVA with no residual deficit?, TIA, COPD, GERD, diabetes type 2, hyperlipidemia, hypertension, IA, ischemic cardiomyopathy, congestive heart failure, among others presents to the emergency room from [facility] with report of waking up this morning around 7:00 a.m. with difficulty speaking and also described difficulty swallowing. When the patient arrived, the patient had difficulty speaking, drooling on the right side, and slight right-sided facial droop. Initial NIH scale was negative. No interventions en route. Last normal was Sunday evening prior to going to bed. Workup in the emergency room including CT of the brain, no acute finding. Lab work, the patient was found to be COVID positive. CBC; WBC 7, hemoglobin 13.3, sodium 142, potassium 4.1, BUN 13, and creatinine 0.9. Chest x-ray showed a few peripheral opacities in the lung which can be seen with COVID pneumonia. CT of the brain, no acute intracranial pathology. PAST MEDICAL HISTORY: As mentioned above in the history of present illness. PAST SURGICAL HISTORY: 1. Pacemaker. 2. Nodes removed from right testicle. SOCIAL HISTORY: The patient lives in a long-term care facility. Denies alcohol use. Denies drug use. He quit smoking five years ago. FAMILY HISTORY: Reviewed and noncontributory. ALLERGIES: NO KNOWN ALLERGIES. CURRENT MEDICATIONS: See home medication reconciliation form for updated medications. REVIEW OF SYSTEMS: Review of 14 systems negative except what is mentioned in the history of present illness. PHYSICAL EXAMINATION: GENERAL: The patient is awake, alert, having difficulty with speech, mild right facial droop. VITAL SIGNS: Blood pressure is 159/92, pulse is 63, respiratory rate is 13. Current temperature 98.5. Oxygen saturation is 97% on room air. HEENT: Normocephalic, atraumatic. NECK: Supple. No JVD. CHEST: Fair bilateral air entry. HEART: S1, S2. Regular. ABDOMEN: Soft, nontender. Bowel sounds present. NEUROLOGIC: Awake, alert, oriented. Mild right facial droop, having an expressive aphasia. PSYCH: Unable to assess. EXTREMITIES: No clubbing or cyanosis. LABORATORY DATA: As mentioned above in the history of present illness. IMAGING STUDIES: As mentioned above in the history of present illness. ASSESSMENT: 1. CVA? acute. 2. COVID-19 virus infection. 3. History of multiple cerebrovascular accidents and transient ischemic attacks. 4. Cardiomyopathy. 5. Hyperlipidemia. 6. Hypertension. 7. Diabetes mellitus, type 2. 8. Chronic obstructive pulmonary disease. PLAN: 1. Admit. 2. Isolation precautions. 3. Aspirin. 4. MRI of the brain. 5. Frequent neuro checks. 6. PT/OT eval. 7. Reconcile home medications. 8. DVT prophylaxis appropriate. 9. Expected length of stay, 2 midnights or more. Job ID: [id number]
[2020-05-21 02:43] VITALS: BMI 28.8
[2020-05-21] MEDS: Sodium Chloride 0.9% 1,000 ML IV SCH ×2 (03:15→19:55)
[2020-05-21 05:40] LABS: Cardiac Risk 3.6 (Less than 4.5)
[2020-05-21] MEDS ORDERED: Milk Of Magnesia 30 ML UDCUP PO PRN (07:27)
[2020-05-21] MEDS ORDERED: Senokot S 8.6-50 MG TAB PO PRN (07:27)
[2020-05-21] MEDS ORDERED: traMADol HCl 50 MG TAB PO PRN (07:27)
[2020-05-21] MEDS ORDERED: Acetaminophen 500 MG TAB PO PRN (07:27)
[2020-05-21] MEDS ORDERED: HumaLOG 300 UNITS/3 ML VIAL SC PRN (07:30)
[2020-05-21] MEDS ORDERED: Dextrose 50% Abboject 50 ML SYRINGE SLOW IVP PRN (07:30)
[2020-05-21] MEDS ORDERED: Dextrose 5% in Water 1,000 ML IV PRN (07:30)
[2020-05-21] MEDS: Enoxaparin Sodium 40 MG/0.4 ML SYRINGE SC SCH (08:59)
[2020-05-21] MEDS ORDERED: Aspirin 325 mg Enteric Coated Tablet PO SCH (09:00)
[2020-05-21] MEDS: Carvedilol 6.25 MG TAB PO SCH ×2 (11:46→19:54)
[2020-05-21] MEDS: Docusate 100 MG CAP PO SCH (11:47)
[2020-05-21] MEDS: Clopidogrel Bisulfate 75 MG TAB PO SCH (11:47)
[2020-05-21] MEDS: Aspirin 325 mg Enteric Coated Tablet PO SCH (11:47)
[2020-05-21] MEDS: Amiodarone 200 MG TAB PO SCH (11:47)
[2020-05-21] MEDS: Lisinopril 2.5 MG TAB PO SCH (11:47)
--- NOTE | 2020-05-21 13:24 | CON ---
NEUROLOGY CONSULTATION DATE OF CONSULTATION: 05/21/2020 REASON FOR CONSULTATION: Rule out stroke. HISTORY OF PRESENT ILLNESS: Mr. Villanueva is a 54-year-old male with history significant for prior CVA with no residual deficits, prior TIA, COPD, GERD, diabetes mellitus, hyperlipidemia, hypertension, myocardial infarction, ischemic cardiomyopathy, presented with stroke-like symptoms. He woke up around 7:00 a.m. and had difficulty speaking and also difficulty swallowing. When the patient arrived, he was drooling on the right side and also has a slight facial droop. Head CT was done, which was negative for acute intracranial pathology. The chest x- ray showed peripheral opacity in the lung, which can be seen with COVID pneumonia, so he was tested for COVID and was found to be positive. The patient denies nausea, vomiting, headache, chest pain, abdominal pain, recent illness, but does have COVID pneumonia. REVIEW OF SYSTEMS: All systems reviewed and were negative except the pertinent positives and negatives mentioned in the HPI. PAST MEDICAL HISTORY: Prior CVA, TIA, COPD, GERD, diabetes mellitus type 2, hypertension, hyperlipidemia, ischemic cardiomyopathy, congestive heart failure. PAST SURGICAL HISTORY: Pacemaker, nodes removed from the right testicle. SOCIAL HISTORY: The patient lives in a long-term facility. Denies alcohol, smoking, illegal drug use. FAMILY HISTORY: No significant family history. ALLERGIES: NO KNOWN DRUG ALLERGIES. CURRENT MEDICATIONS: See home reconciliation form for updated medications. PHYSICAL EXAMINATION: VITAL SIGNS: Blood pressure 159/92, pulse 63, respiratory rate 13. CVS: Regular rate and rhythm. CHEST: Clear. ABDOMEN: Soft. NECK: Supple. NEUROLOGIC: Mental status; the patient is alert, awake, and oriented to his name. He does have expressive aphasia and mild dysarthria and mild facial droop. Cranial nerves, 2 through 12 intact except 7, mild right facial droop and 10 dysarthria. Motor, muscle tone and bulk are normal. Moving all 4 extremities equally and symmetrically. Sensory, withdraws to nailbed pressure bilaterally. Cerebellar, finger-nose testing intact. Gait deferred due to patient's safety reason. DATA REVIEWED: I reviewed the CT scan which was negative for acute intracranial pathology. ASSESSMENT AND PLAN: Mr. Sotero Villanueva is a 54-year-old male with history significant for COVID virus infection, history of multiple cerebrovascular accidents, cardiomyopathy, hyperlipidemia, hypertension, diabetes, and chronic obstructive pulmonary disease, presented with acute onset slurred speech with expressive aphasia and right facial droop most likely acute intracranial process, stroke versus TIA. Continue aspirin, Plavix, and high-intensity statin for secondary stroke prevention. Neuro checks every 4 hours. MRI of the brain is not possible due to the pacemaker, so consider repeat head CT without contrast 48 hours after symptom onset. 2D echo to evaluate for left ventricular ejection fraction and carotid Dopplers to evaluate for hemodynamically significant stenosis. Continue telemetry to rule out arrhythmias. N.p.o. until cleared by Speech. PT/OT/Speech. Continue medical management per primary team. We will continue to follow. Plan discussed with the patient and the nursing staff Thank you for the consult. Job ID: [id number] PRISCILLA
[2020-05-21] MEDS: Ipratropium/Albuterol Sulfate 4 GM AER IH SCH ×2 (13:41→18:28)
--- NOTE | 2020-05-21 15:43 | PDOC.EVN ---
Event Note - Event Note Event Note: Chart reviewed. Patient examined. Patient is a 54-year-old male with a history of significant coronary vascular disease. Has a history of prior strokes x4. Patient had onset of dysarthria and dysphagia. Said he felt like he was choking when he tried to eat but was not necessarily coughing. Said it felt like his throat was closing. CT scan was negative. Symptoms have resolved and he feels like he is at his baseline. His exam is largely unremarkable although he has some mild dysarthria which I believe is likely his baseline. He seems to think so. His heart was regular. Lungs were clear. Normal occupational safety specialist strength bilaterally. Patient is unable to get the MRI primarily because of Covid restrictions. We will repeat the CT scan tomorrow. Patient is already on full dose aspirin, Plavix, high intensity statin.
[2020-05-21] MEDS ORDERED: Atorvastatin Calcium 40 MG TAB PO SCH ×2 (21:00)
[2020-05-21] MEDS ORDERED: FLU VACC QS2020-21(6MOS UP)/PF 60 MCG/0.5 ML SYRINGE IM ONE (21:00)
[2020-05-22] MEDS: Ipratropium/Albuterol Sulfate 4 GM AER IH SCH ×3 (04:39→13:16)
[2020-05-22] MEDS: Enoxaparin Sodium 40 MG/0.4 ML SYRINGE SC SCH (08:31)
[2020-05-22] MEDS: Carvedilol 6.25 MG TAB PO SCH (08:32)
[2020-05-22] MEDS: Docusate 100 MG CAP PO SCH (08:33)
[2020-05-22] MEDS: Amiodarone 200 MG TAB PO SCH (08:33)
[2020-05-22] MEDS: Lisinopril 2.5 MG TAB PO SCH (08:33)
[2020-05-22] MEDS: Clopidogrel Bisulfate 75 MG TAB PO SCH (08:33)
[2020-05-22] MEDS: Aspirin 325 mg Enteric Coated Tablet PO SCH (08:34)
--- NOTE | 2020-05-22 09:30 | ULT ---
BILATERAL CAROTID DUPLEX ULTRASOUND: HISTORY: CVA TECHNIQUE: Grayscale, color-flow and spectral Doppler ultrasound imaging of the extracranial carotid artery syst ems was performed bilaterally. FINDINGS: There is plaque formation on both sides. The peak systolic velocity in the right ICA measures 237 cm/s with an end-diastolic velocity of 87 cm /s and a systolic ratio of 3.48. The peak systolic velocity in the left ICA measures 149 cm/s with an end-diastolic velocity of 49 cm/s and a systolic ratio of 2.12. The vertebral arteries are not visualized. IMPRESSION: 1. Severe (greater than 70%) stenosis of the right ICA. 2. Moderate (50-69%) stenosis of the left ICA
--- NOTE | 2020-05-22 10:19 | CT ---
PRELIMINARY REPORT/[facility]/EMERGENCY AFTER HOURS PROCEDURE: EXAM: CT Head Without Intravenous Contrast. CLINICAL HISTORY: FOLLOW UP STUDY TO EVALUATE POTENTIAL CVA TECHNIQUE: Axial computed tomography images of the head/brain without intravenous contrast. COMPARISON: 05/20/2020. FINDINGS: BRAIN: No acute intraparenchymal hemorrhage. No mass lesion. No CT evidence for acute territorial infarct. N o midline shift or extra-axial collection. Old left posterior cerebral artery infarction involving t he left occipital lobe. Mild age-appropriate periventricular deep white matter small vessel change. Old lacunar infarctions of the basal ganglia are noted. VENTRICLES: No hydrocephalus. ORBITS: The orbits are unremarkable. SINUSES AND MASTOIDS: The paranasal sinuses and mastoid air cells are clear. SOFT TISSUES: No significant facial or scalp soft tissue swelling evident. No radiopaque foreign body is seen. BONES: No acute skull fracture. IMPRESSION: No acute intracranial abnormality. Old left occipital infarction. Mild age-appropriate periventricu lar small vessel change. There are old lacunar infarctions of the basal ganglia.. ELECTRONICALLY SIGNED BY: Arminda Muhammad DO May 22, 2020 4:03:47 AM NURSING ATTENDANT This report is intended for review by the ordering physician only, in accordance of law. If you recei ve this report in error, please call [facility] at [phone]. FINAL REPORT EMERGENCY AFTER HOURS CT OF THE BRAIN WITHOUT CONTRAST: Date: 05/22/2020 FINDINGS/IMPRESSION: I agree with the preliminary report given by [facility]. POS: OFF
[2020-05-22 11:07] VITALS: TEMP 97.6
[2020-05-22 14:05] VITALS: BP 136/70
--- NOTE | 2020-05-23 05:09 | CON ---
DATE OF CONSULTATION: HISTORY OF PRESENT ILLNESS: This is a 54-year-old gentleman, admitted with new dysarthria and some right facial weakness. He had had a previous occipital stroke and may have had some dysarthria associated with that. He had a carotid ultrasound demonstrating peak velocity of 237 cm/second with a diastolic velocity of about 85 cm/second on the right suggesting a greater than 70% stenosis. Additionally, he lives in a long-term care facility related to multiple medical problems and difficulty with compliance at home. He tested positive for COVID-19 on this admission. He has a past history of an ejection fraction of 15% to 20% last year and has had a previous AICD placed that has fired off multiple times in the past. He has diabetes mellitus, hypertension, and dyslipidemia. At this time, I have elected not to visit with the patient given that his COVID positive status, but just recommend continued medical therapy for his multiple medical problems. He is already on aspirin and Plavix, which is appropriate. He will need a CT angiogram of his neck at some point and examination by myself as an outpatient once he is cleared from his COVID. Whether any intervention is to be contemplated I think depends on the severity of the stenosis as well as his comorbidities, and as mentioned, I will have to examine him and go over in further detail once he is no longer COVID positive. Job ID: [id number]
--- NOTE | 2020-05-23 10:50 | CT ---
CTA NECK WITH IV CONTRAST AND 3D POSTPROCESSING: Date: 05/23/2020 HISTORY: Bilateral carotid stenosis. FINDINGS/IMPRESSION: Exam is limited due to significant venous contamination. There is calcified plaque in the vertebrobasilar and carotid artery systems on both sides. No signifi cant flow is seen in the left vertebral artery. Flow is demonstrated in the right vertebral artery. There is 50% stenosis in the right proximal ICA close to the origin and 75% stenosis in the left prox imal ICA close to its origin. Patchy peripheral opacities in the upper lung christina are new since the CT scan of 07/29/2019. The pos sibility of infection should be considered. There are multilevel degenerative changes in the cervical spine. There is mucosal disease in the para nasal sinuses. POS: OFF
[2020-05-23] MEDS ORDERED: Iopamidol 370 76% 100 ML VIAL ONE (13:45)
== END 2020-05-22 13:34 | disposition home or self-care (01) | DRG 177 ==
LOC: ERS 21:57 → 2SW 05-21 01:20
PROVIDERS: ADMIT Internal Medicine; ATTEND Internal Medicine
PROC: 8E0ZXY6 Isolation (ICD-10-PCS; principal; 2020-05-21)
DX: U07.1 COVID-19 (principal); J12.89 Other viral pneumonia; J44.0 Chronic obstructive pulmonary disease with (acute) lower respiratory infection; Z23 Encounter for immunization; I69.322 Dysarthria following cerebral infarction; E78.5 Hyperlipidemia, unspecified; E78.00 Pure hypercholesterolemia, unspecified; E11.9 Type 2 diabetes mellitus without complications; I11.0 Hypertensive heart disease with heart failure; I50.9 Heart failure, unspecified; I25.5 Ischemic cardiomyopathy; I25.10 Atherosclerotic heart disease of native coronary artery without angina pectoris; K21.9 Gastro-esophageal reflux disease without esophagitis; I25.2 Old myocardial infarction; Z79.899 Other long term (current) drug therapy; Z95.810 Presence of automatic (implantable) cardiac defibrillator; I69.320 Aphasia following cerebral infarction; I69.392 Facial weakness following cerebral infarction; Z87.891 Personal history of nicotine dependence; Z79.82 Long term (current) use of aspirin; Z79.02 Long term (current) use of antithrombotics/antiplatelets
CPT/HCPCS: 0240U; 36415; 36416; 70450; 71045; 80053; 80061; 83880; 85025; 93880; 96365; 96367; J0456; J0696; J1650

== ENCOUNTER 2020-05-22 13:57 | Inpatient (IN) | payer MEDICARE, MEDICAID ==
[2020-05-22] MEDS ORDERED: traMADol HCl 50 MG TAB PO PRN (14:32)
[2020-05-22] MEDS ORDERED: Senokot S 8.6-50 MG TAB PO PRN (14:32)
[2020-05-22 14:33] VITALS: BMI 28.8
[2020-05-22] MEDS ORDERED: Milk Of Magnesia 30 ML UDCUP PO PRN (14:33)
[2020-05-22] MEDS ORDERED: Acetaminophen 500 MG TAB PO PRN (14:33)
[2020-05-22] MEDS ORDERED: Dextrose 50% Abboject 50 ML SYRINGE IVP PRN (14:45)
[2020-05-22] MEDS ORDERED: Dextrose 5% in Water 1,000 ML IV PRN (14:45)
[2020-05-22] MEDS ORDERED: HumaLOG 300 UNITS/3 ML VIAL SC PRN (14:45)
[2020-05-22] MEDS: Sodium Chloride 0.9% 1,000 ML IV SCH (16:09)
--- NOTE | 2020-05-22 18:05 | PDOC.HOSPP ---
- Subjective Encounter Date: 05/22/20 Subjective: Patient is feeling generally well. He feels like he is fully back to his baseline. He has a history of a prior CVA with some dysarthria but believes that he is at his baseline speech pattern. - Objective Vital Signs & Weight: Vital Signs (12 hours) Temp Pulse Resp BP Pulse Ox 05/22/20 16:05 98.4 F 60 16 137/81 100 Weight Weight 206 lb 9.6 oz I&O: 05/21/20 05/22/20 05/23/20 06:59 06:59 06:59 Intake Total 1440 Output Total 750 Balance 690 Additional Labs: Accuchecks 05/22/20 16:05 POC Glucose 108 H Hospitalist ROS - Medication Medications: Active Medications Generic Name Dose Route Start Last Admin Trade Name Freq PRN Reason Stop Dose Admin Sodium Chloride 1,000 mls @ 50 mls/hr 05/22/20 14:30 05/22/20 16:09 Normal Saline 0.9% IV 1,000 mls .Q20H SRINIVAS Administration - Exam General Appearance: NAD, awake alert Heart: RRR, no murmur, no gallops, no rubs, normal peripheral pulses Respiratory: CTAB, no wheezes, no rales, no ronchi, normal chest expansion, no tachypnea, normal percussion Gastrointestinal: soft, non-tender, non-distended, normal bowel sounds, no palpable masses, no hepatomegaly, no splenomegaly, no bruit Extremities: no cyanosis, no clubbing, no edema Neurological - other findings: Mild dysarthria. Musculoskeletal: normal tone Psychiatric: normal affect, normal behavior, A&O x 3 Hosp A/P (1) TIA (transient ischemic attack) Code(s): G45.9 - TRANSIENT CEREBRAL ISCHEMIC ATTACK, UNSPECIFIED Status: Acute (2) CAD (coronary artery disease) Code(s): I25.10 - ATHSCL HEART DISEASE OF [place] CORONARY ARTERY W/O ANG PCTRS Status: Acute (3) Chronic systolic (congestive) heart failure Code(s): I50.22 - CHRONIC SYSTOLIC (CONGESTIVE) HEART FAILURE Status: Acute (4) Ischemic cardiomyopathy Code(s): I25.5 - ISCHEMIC CARDIOMYOPATHY Status: Acute (5) DM type 2 (diabetes mellitus, type 2) Status: Chronic (6) H/O: CVA (cerebrovascular accident) Code(s): Z86.73 - PRSNL HX OF TIA (TIA), AND CEREB INFRC W/O RESID DEFICITS Status: Chronic (7) HTN (hypertension) Code(s): I10 - ESSENTIAL (PRIMARY) HYPERTENSION Status: Chronic Qualifiers: (8) Obesity (BMI 30.0-34.9) Code(s): E66.9 - OBESITY, UNSPECIFIED Status: Chronic (9) COPD (chronic obstructive pulmonary disease) Status: Acute - Plan TIA: No acute changes on imaging. Symptoms fully resolved. Dysarthria is at baseline. With his history of CVA the patient is already on full dose aspirin, Plavix, statin. Carotid stenosis: Patient has significant bilateral carotid stenosis on ultrasound. CV surgery consulted. COVID-19 infection: Patient appears to be generally asymptomatic. Known to be thrombogenic and may have contributed to the current TIA symptoms. History of cardiomyopathy. Patient has a severe ischemic cardiomyopathy with an ejection fraction around 15 to 20%. Generally stable with no evidence of decompensated heart failure. He does have some akinesis at the apex. Could potentially have some thrombogenic origin for his CVA. I believe the echocardiogram for this visit has been delayed due to Covid isolation. He is on PAULO inhibitor for afterload reduction and beta-lashae with Coreg. Diabetes mellitus: Blood sugars have been extremely well controlled. Hypertension: Continue lisinopril and Coreg. Very well controlled. Hyperlipidemia: Continue statin. COPD: Stable.
[2020-05-22] MEDS: Ipratropium/Albuterol Sulfate 4 GM AER IH SCH (20:05)
[2020-05-22] MEDS: Carvedilol 6.25 MG TAB PO SCH (20:12)
[2020-05-22] MEDS ORDERED: Atorvastatin Calcium 40 MG TAB PO SCH (21:00)
[2020-05-23] MEDS: Ipratropium/Albuterol Sulfate 4 GM AER IH SCH ×3 (01:00→11:58)
[2020-05-23] MEDS ORDERED: Senokot S 8.6-50 MG TAB PO PRN (04:12)
[2020-05-23] MEDS: Carvedilol 6.25 MG TAB PO SCH (08:54)
[2020-05-23] MEDS ORDERED: Enoxaparin Sodium 40 MG/0.4 ML SYRINGE SC SCH (09:00)
[2020-05-23] MEDS ORDERED: Clopidogrel Bisulfate 75 MG TAB PO SCH (09:00)
[2020-05-23] MEDS ORDERED: Amiodarone 200 MG TAB PO SCH (09:00)
[2020-05-23] MEDS ORDERED: Docusate 100 MG CAP PO SCH (09:00)
[2020-05-23] MEDS ORDERED: Aspirin 325 MG TAB PO SCH (09:00)
[2020-05-23] MEDS ORDERED: Lisinopril 2.5 MG TAB PO SCH (09:00)
[2020-05-23] MEDS: Sodium Chloride 0.9% 1,000 ML IV SCH (11:18)
--- NOTE | 2020-05-23 12:55 | PDOC.DS.DS ---
Provider - Provider Date of Admission: 05/22/20 13:57 Date of Discharge: 05/23/20 Admitting Provider: Joshua Conte MD Course - Hospital Course Hospital Course: This patient is a 54-year-old male with a history of prior strokes and TIAs who presented to the emergency department from the [facility] reporting worsening speech and some choking with trying to swallow. Patient symptoms had largely resolved on arrival. TIA: No acute changes on imaging. Multiple old CVAs noted. Symptoms fully resolved. Dysarthria is at baseline. With his history of CVA the patient is already on full dose aspirin, Plavix, statin. Carotid stenosis: Patient has significant bilateral carotid stenosis on ultrasound. CV surgery consulted. Given his comorbidities including his significant cardiomyopathy and his active Covid infection the plan was for medical management and outpatient follow-up. COVID-19 infection: Patient appears to be generally asymptomatic. Known to be thrombogenic and may have contributed to the current TIA symptoms. No specific treatment indicated as the patient had no hypoxia or respiratory symptoms. History of cardiomyopathy. Patient has a severe ischemic cardiomyopathy with an ejection fraction around 15 to 20%. Generally stable with no evidence of decompensated heart failure. He does have some akinesis at the apex. Could potentially have some thrombogenic origin for his CVA however, given the degree of his carotid stenosis this is more likely. the echocardiogram for this visit has been delayed due to Covid isolation. He is on PAULO inhibitor for afterload reduction and beta-lashae with Coreg. Diabetes mellitus: Blood sugars have been extremely well controlled. Hypertension: Continue lisinopril and Coreg. Very well controlled. Hyperlipidemia: Continue statin. COPD: Stable. - Physical Exam Vitals: Vital Signs (12 hours) Temp Pulse Resp BP BP Pulse Ox 05/23/20 10:30 97.7 F 60 16 118/60 97 05/23/20 08:55 60 05/23/20 08:54 130/81 05/23/20 08:00 97.7 F 60 18 138/79 100 05/23/20 04:40 98.4 F 56 L 20 119/70 100 Weight Weight 206 lb 9.6 oz Physical Exam: The patient was seen and examined on the day of discharge. Problem - Problem (1) TIA (transient ischemic attack) Code(s): G45.9 - TRANSIENT CEREBRAL ISCHEMIC ATTACK, UNSPECIFIED Status: Acute (2) CAD (coronary artery disease) Code(s): I25.10 - ATHSCL HEART DISEASE OF [place] CORONARY ARTERY W/O ANG PCTRS Status: Acute (3) Chronic systolic (congestive) heart failure Code(s): I50.22 - CHRONIC SYSTOLIC (CONGESTIVE) HEART FAILURE Status: Acute (4) Ischemic cardiomyopathy Code(s): I25.5 - ISCHEMIC CARDIOMYOPATHY Status: Acute (5) DM type 2 (diabetes mellitus, type 2) Status: Chronic (6) H/O: CVA (cerebrovascular accident) Code(s): Z86.73 - PRSNL HX OF TIA (TIA), AND CEREB INFRC W/O RESID DEFICITS Status: Chronic (7) HTN (hypertension) Code(s): I10 - ESSENTIAL (PRIMARY) HYPERTENSION Status: Chronic Qualifiers: (8) Obesity (BMI 30.0-34.9) Code(s): E66.9 - OBESITY, UNSPECIFIED Status: Chronic (9) COPD (chronic obstructive pulmonary disease) Status: Acute Plan - Discharge Medications Home Medications: Medication Instructions Recorded Confirmed Type Aspirin [Ecotrin Regular Strength] 325 mg PO DAILY #30 tab 04/30/19 05/22/20 Rx Atorvastatin Calcium [Lipitor] 40 mg PO HS #30 tab 04/30/19 05/22/20 Rx Carvedilol [Coreg] 12.5 mg PO BID #60 tab 04/30/19 05/22/20 Rx Clopidogrel Bisulfate [Plavix] 75 mg PO DAILY #30 tab 04/30/19 05/22/20 Rx Acetaminophen [Tylenol Extra 1,000 mg PO Q6H PRN tab 05/07/19 05/22/20 Rx Strength] Amiodarone [Cordarone] 200 mg PO DAILY 05/21/20 05/22/20 History Docusate Sodium [Dulcolax Stool 100 mg PO DAILY 05/21/20 05/22/20 History Softener] Ipratropium/Albuterol Sulfate 1 vial NEB Q6H PRN 05/21/20 05/22/20 History Lisinopril [Zestril] 2.5 mg PO DAILY 05/21/20 05/22/20 History Magnesium Hydroxide [Milk of 30 ml PO Q24HR PRN 05/21/20 05/22/20 History Magnesia] Omeprazole 20 mg PO DAILY 05/21/20 05/22/20 History Sennosides/Docusate Sodium 2 tablet PO Q12H PRN 05/21/20 05/22/20 History [Senokot S] Umeclidinium/Vilanterol [Anoro 1 puff INH DAILY 05/21/20 05/22/20 History Ellipta 62.5/25 MCG INH] traMADol HCl [Tramadol HCl] 100 mg PO Q8HR PRN 05/21/20 05/22/20 History traMADol HCl [Ultram] 50 mg PO Q8H PRN 05/21/20 05/22/20 History Allergies: No Known Drug Allergies Allergy (Verified 05/21/20 02:42) - Discharge Instructions Activity:: Activity as Tolerated Nourishment:: Heart Healthy Diet - Follow up Plan Referrals: Hesham Contreras MD [Active] - 14 Days Disposition: HOME Quality - Care Measures CORE MEASURES:: Stroke/TIA - Stroke/TIA Did you prescribe antithrombotic therapy?: Yes Did you prescribe anticoagulant for A Fib/Flutter?: No Specify reason for no DC anticoagulant: Treatment not indicated Did you prescribe a statin medication?: Yes
[2020-05-23] MEDS ORDERED: FLU VACC QS2020-21(6MOS UP)/PF 60 MCG/0.5 ML SYRINGE IM ONE (15:00)
[2020-05-23 16:04] VITALS: BP 142/83; TEMP 98.6
--- NOTE | 2020-05-26 04:09 | PQF ---
Dear : Finn Rodriguez Date 05/26/2020 Please exercise your independent, professional judgment in responding to the clarification form. Clinical indicators are provided on the bottom of this form for your review Can you please further clarify the diagnosis of the patient? Please check appropriate box(es): TIA TYPE: [ x ] TIA due to carotid stenosis [ ] TIA is not due to carotid stenosis [ ] Other diagnosis please specify [ ] Unable to determine Physician Signature: Date/Time: For continuity of documentation, please document condition throughout progress notes and discharge summary. Thank You. To be completed by CDI/Coding staff for physician review: Present Clinical Indicators - Signs / Symptoms / Labs Results and Location in Medical Record [ x ] TIA, no acute changes on imaging, symptoms fullt resolved Hospitalist PN pg.3 [ x ] Carotid stenosis, patient has significant bilateral carotid stenosis on ultrasound Hospitalist PN pg.3 [ x ] Worsening speech and some choking with trying to swallow DS pg.1 Present Risk Factors Results and Location in Medical Record [ x ] Hx of CVA with prior dysarthria Hospitalist PN pg.3 [ x ] CAD Hospitalist PN pg.3 [ x ] Chronic systolic CHF Hospitalist PN pg.3 [ x ] DM Hospitalist PN pg.4 [ x ] HTN Hospitalist PN pg.4 [ x ] Obesity Hospitalist PN pg.4 [ x ] Ischemic cardiomyopathy Hospitalist PN pg.4 Present Treatments Results and Location in Medical Record [ x ] IV Fluids MAR [ x ] Plavix 75mg PO MAR [ x ] Aspirin 325mg PO MAR CDS/Regional Loss Prevention Manager Signature: Cristian Foley Phone #: ext [phone] Date 05/26/2020 This is a permanent part of the Medical Record [facility]
== END 2020-05-23 16:12 | DRG 67 ==
LOC: 2SW 13:57
PROVIDERS: ADMIT Internal Medicine; ATTEND Internal Medicine
PROC: 8E0ZXY6 Isolation (ICD-10-PCS; principal; 2020-05-22)
DX: I65.23 Occlusion and stenosis of bilateral carotid arteries (principal); U07.1 COVID-19; I50.22 Chronic systolic (congestive) heart failure; I25.5 Ischemic cardiomyopathy; E11.9 Type 2 diabetes mellitus without complications; I11.0 Hypertensive heart disease with heart failure; E78.5 Hyperlipidemia, unspecified; J44.9 Chronic obstructive pulmonary disease, unspecified; I25.10 Atherosclerotic heart disease of native coronary artery without angina pectoris; E66.9 Obesity, unspecified; I69.322 Dysarthria following cerebral infarction; Z68.28 Body mass index [BMI] 28.0-28.9, adult; Z79.82 Long term (current) use of aspirin; Z79.51 Long term (current) use of inhaled steroids; Z79.899 Other long term (current) drug therapy
CPT/HCPCS: 36416; J1650

== ENCOUNTER 2022-01-06 15:03 | Emergency (ER) | payer MEDICARE ==
[2022-01-06] MEDS ORDERED: Iopamidol-370 76% 500 ML 1 ML ONE (15:35)
[2022-01-06 15:38] LABS: #Eosinphils 0.2 thou/uL (0.0-0.7); #Lymphocytes 0.9 thou/uL (1.20-3.40); #Monocytes 0.4 thou/uL (0.11-0.59); #Neutrophils 3.7 thou/uL (1.40-6.50); %Basophils 0.5 % (0.0-1.0); %Eosinophils 4.2 % (0.0-10.0); %Lymphocytes 16.8 % (21.0-51.0); %Monocytes 7.9 % (0.0-10.0); %Neutrophils 70.5 % (42.0-75.0); Hemoglobin 13.1 g/dL (14.0-18.0); Mean Corpuscular HGB CONC 33.6 g/dL (32.0-36.0); Mean Platelet Volume 9.1 fL (7.4-10.4); Platelet Count 141 thou/uL (130-400); RBC Distribution Width 11.6 % (11.5-14.5); Red Blood Cell (RBC) Count 3.86 mill/uL (4.70-6.10); White Blood Cell (WBC) Count 5.2 thou/uL (4.8-10.8)
[2022-01-06 15:53] LABS: ALT (SGPT) 16 U/L (8-55); AST (SGOT) 15 U/L (5-34); Albumin 3.9 g/dL (3.5-5.0); Alkaline Phosphatase 73 U/L (40-110); Anion Gap 15 mmol/L (10-20); BUN (Urea Nitrogen) 25 mg/dL (8.4-25.7); Bilirubin, Total 1.7 mg/dL (0.2-1.2); Calc. Creatinine Clearance 0 mL/min (70-130); Calcium 9.5 mg/dL (7.8-10.44); Carbon Dioxide 27 mmol/L (22-29); Chloride 102 mmol/L (98-107); Estimated GFR 105; Globulin 3.5 g/dL (2.4-3.5); Glucose 142 mg/dL (70-105); Lipase 45 U/L (8-78); Potassium 3.6 mmol/L (3.5-5.1); Protein, Total 7.4 g/dL (6.0-8.3); Sodium 140 mmol/L (136-145)
[2022-01-06 17:12] LABS: Bilirubin Negative (Negative); Blood, Urine Negative (Negative); Clarity Clear (Clear); Glucose, Urine (Dipstick) Normal (Negative); Ketone, Urine Negative (Negative); Leukocyte Negative Leu/uL (Negative); Nitrite Negative (Negative); Protein, Urine (Dipstick) Negative (Neg-Trace); Urobilinogen 6 mg/dL (Less than 2); pH, Urine 5.5 (5.0-9.0)
[2022-01-06 17:15] LABS: Specific Gravity, Urine 1.049 (1.002-1.036)
== END 2022-01-06 18:00 | disposition home or self-care (01) ==
LOC: ERS 15:03
DX: J69.0 Pneumonitis due to inhalation of food and vomit (principal); M79.18 Myalgia, other site; E03.9 Hypothyroidism, unspecified; E11.9 Type 2 diabetes mellitus without complications; E78.5 Hyperlipidemia, unspecified; E78.00 Pure hypercholesterolemia, unspecified; I11.0 Hypertensive heart disease with heart failure; I50.9 Heart failure, unspecified; I25.2 Old myocardial infarction; J44.9 Chronic obstructive pulmonary disease, unspecified; K21.9 Gastro-esophageal reflux disease without esophagitis; Z87.891 Personal history of nicotine dependence; Z86.73 Personal history of transient ischemic attack (TIA), and cerebral infarction without residual deficits; Z79.899 Other long term (current) drug therapy; Z79.84 Long term (current) use of oral hypoglycemic drugs; Z79.82 Long term (current) use of aspirin
CPT/HCPCS: 36415; 74177; 80053; 81003; 83690; 84484; 85025; 93005; 94760; Q9967